=== PATIENT | male | born 1955 | race Caucasian/White ===

== ENCOUNTER 2017-11-23 15:43 | Inpatient (IN) ==
[2017-11-23] MEDS ORDERED: 0.9 % Sodium Chloride 1,000 ML IVC ONE (16:03)
[2017-11-23] MEDS ORDERED: 0.9 % Sodium Chloride 1,000 ML ONE (16:04)
--- NOTE | 2017-11-23 16:08 | Emergency Department Note ---
Disposition Clinical Impression: Opiate overdose Qualifiers: Encounter type: initial encounter Injury intent: undetermined intent Qualified Code(s): T40.604A - Poisoning by unspecified narcotics, undetermined, initial encounter Altered mental status Qualifiers: Altered mental status type: delirium Qualified Code(s): R41.0 - Disorientation , unspecified Disposition: Admitted As Inpatient Condition: Undetermined General Adult HPI - General Chief complaint: ED Altered Mental Status Stated complaint: Overdose Time Seen by Provider: 11/23/17 15:49 Source: EMS - History of Present Illness Pain Scale: 0 - Related Data Home Medications Medication Instructions Recorded Confirmed Cholecalciferol (D-3) [Vitamin D] 2,000 unit PO DAILY 11/23/17 11/23/17 Cyprohepatdine [Periactin] 4 mg PO HS PRN 11/23/17 11/23/17 Docusate Sodium [Dok] 100 mg PO DAILY 11/23/17 11/23/17 Ferrous Sulfate [Iron] 325 mg PO DAILY 11/23/17 11/23/17 Indomethacin 50 mg PO Q8H PRN 11/23/17 11/23/17 Ipratropium/Albuterol Sulfate 4 gm IH Q6H PRN 11/23/17 11/23/17 [Combivent Respimat Inhal [place]] Lidocaine Patch [Lidoderm 5% patch] 1 each TP DAILY 11/23/17 11/23/17 Meloxicam [Mobic] 7.5 mg PO BID 11/23/17 11/23/17 Memantine HCl 10 mg PO BID 11/23/17 11/23/17 Morphine Sulfate SR (12 HR) [MS 1 tab PO Q12HR 11/23/17 11/23/17 Contin] Oxycodone HCl/Acetaminophen 1 tab PO Q8H PRN 11/23/17 11/23/17 [Percocet 5-325 mg Tablet] Sennosides [Senokot] 8.6 mg PO DAILY 11/23/17 11/23/17 Sildenafil Citrate [Viagra] 100 mg PO DAILY 11/23/17 11/23/17 Tamsulosin [Flomax] 0.4 mg PO DAILY 11/23/17 11/23/17 hydrOXYzine HCl [Hydroxyzine HCl] 50 mg PO BID PRN 11/23/17 11/23/17 Allergies Allergy/AdvReac Type Severity Reaction Status Date / Time codeine AdvReac Swelling Verified 08/17/17 10:33 of Lip/Tongue/Throat Past Medical History - Past Medical History Medical history: Reports: arthritis, cancer Surgical history: Reports: cholecystectomy, orthopedic, other Psychiatric history: Reports: no psych history - Social History Smoking Status: Never smoker Smokeless Tobacco Status: No Alcohol use: Reports: none Drug use: Reports: none Physical Exam - General General appearance: lethargic Course Vital Signs Temperature 97.0 F L 11/23/17 15:45 Pulse Rate 123 11/23/17 15:45 Respiratory Rate 22 11/23/17 15:45 Blood Pressure 167/123 11/23/17 15:45 O2 Sat by Pulse Oximetry 94 11/23/17 15:45 Temperature 97.0 F L 11/23/17 15:45 Pulse Rate 89 11/23/17 18:00 Respiratory Rate 20 11/23/17 18:00 Blood Pressure 121/65 11/23/17 18:00 O2 Sat by Pulse Oximetry 98 11/23/17 18:00 Oxygen Delivery Oxygen Delivery Nasal Cannula Medical Decision Making - Lab Data Result diagrams: 11/23/17 16:06 11/23/17 16:06 Lab Results 11/23/17 11/23/17 11/23/17 Range/Units 15:50 15:54 15:54 WBC (4.3-11.1) K/mcL RBC (4.19-5.50) M/mcL Hgb (12.9-16.9) g/dL Hct (37.5-50.1) % MCV (83.0-100.0) fL MCH (28.0-33.3) pg MCHC (31.6-35.5) g/dL RDW (11.5-14.5) % Plt Count (140-400) K/mcL MPV (9.4-12.4) fL Immature Gran % (0-4) % Seg Neutrophils % % Lymphocytes % % Monocytes % % Eosinophils % % Basophils % % Neutrophils # (1.6-8.9) K/mcL Lymphocytes # (0.6-4.6) K/mcL Monocytes # (0.0-1.3) K/mcL Eosinophils # (0.0-0.6) K/mcL Basophils # (0.0-0.2) K/mcL Sodium (136-145) mEq/L Potassium (3.5-5.1) mEq/L Chloride (98-107) mEq/L Carbon Dioxide (23-29) mEq/L BUN (8-23) mg/dL Creatinine (0.70-1.30) mg/dL Est GFR ( Amer) (> 60) Est GFR (Non-Af Amer) (> 60) BUN/Creatinine Ratio (6-26) Glucose (70-105) mg/dL POC Glucose 100 H (70-99) mg/dL Calculated Osmolality (280-300) Lactic Acid (0.5-2.2) mmol/L Calcium (8.6-10.3) mg/dL Total Bilirubin (0.3-1.0) mg/dL Direct Bilirubin (0.0-0.2) mg/dL Indirect Bilirubin (0.0-1.2) mg/dL AST (13-39) Units/L ALT (7-52) Units/L Alkaline Phosphatase (34-104) Units/L Ammonia (16-53) mcmol/L Troponin I (< 0.04) ng/mL Serum Total Protein (6.4-8.9) g/dL Albumin (3.5-5.7) g/dL Globulin (2.4-3.5) g/dL Albumin/Globulin Ratio (1.1-2.2) Urine Color Yellow (Yellow) Urine Clarity Clear (Clear) Urine pH 6.0 (5.0-8.0) pH Units Ur Specific Scenic 1.013 (1.010-1.025) Urine Protein 30 H (Neg-Trace) mg/dL Urine Glucose (UA) Normal (Normal) mg/dL Urine Ketones Negative (Negative) mg/dL Urine Blood Negative (Negative) Urine Nitrite Negative (Negative) Urine Bilirubin Negative (Negative) Urine Urobilinogen Normal (Normal) mg/dL Ur Leukocyte Esterase Negative (Negative) Urine Microscopic RBC 0-3 (0-3) per hpf Urine Microscopic WBC 0-3 (0-3) per hpf Ur Squamous Epith Cells Moderate H (None-Few) per lpf Urine Bacteria None Seen (None-Few) per hpf Hyaline Casts None Seen (None-Few) per lpf Ur Culture Indicated? NO (NO) Urine Opiates Screen Positive H (Qorocw=785) ng/mL Ur Barbiturates Screen Negative (Yeedch=978) ng/mL Ur Phencyclidine Scrn Positive H (Cutoff=25) ng/mL Ur Amphetamines Screen Negative (Lknknd=2133) ng/mL U Benzodiazepines Scrn Negative (Mhpxee=074) ng/mL Urine Cocaine Screen Negative (Cutoff= 300) ng/mL U Marijuana (THC) Screen Negative (Cutoff = 50) ng/mL 11/23/17 11/23/17 11/23/17 Range/Units 16:06 16:06 16:06 WBC 8.5 (4.3-11.1) K/mcL RBC 5.08 (4.19-5.50) M/mcL Hgb 13.1 (12.9-16.9) g/dL Hct 40.6 (37.5-50.1) % MCV 79.9 L (83.0-100.0) fL MCH 25.8 L (28.0-33.3) pg MCHC 32.3 (31.6-35.5) g/dL RDW 15.9 H (11.5-14.5) % Plt Count 163 (140-400) K/mcL MPV 11.0 (9.4-12.4) fL Immature Gran % 0.5 (0-4) % Seg Neutrophils % 67.8 % Lymphocytes % 19.8 % Monocytes % 9.7 % Eosinophils % 2.0 % Basophils % 0.2 % Neutrophils # 5.7 (1.6-8.9) K/mcL Lymphocytes # 1.7 (0.6-4.6) K/mcL Monocytes # 0.8 (0.0-1.3) K/mcL Eosinophils # 0.2 (0.0-0.6) K/mcL Basophils # 0.0 (0.0-0.2) K/mcL Sodium 136 (136-145) mEq/L Potassium 3.7 (3.5-5.1) mEq/L Chloride 106 (98-107) mEq/L Carbon Dioxide 18 L (23-29) mEq/L BUN 20 (8-23) mg/dL Creatinine 1.11 (0.70-1.30) mg/dL Est GFR ( Amer) > 60 (> 60) Est GFR (Non-Af Amer) > 60 (> 60) BUN/Creatinine Ratio 18 (6-26) Glucose 109 H (70-105) mg/dL POC Glucose (70-99) mg/dL Calculated Osmolality 285 (280-300) Lactic Acid (0.5-2.2) mmol/L Calcium 9.2 (8.6-10.3) mg/dL Total Bilirubin 0.4 (0.3-1.0) mg/dL Direct Bilirubin 0.3 H (0.0-0.2) mg/dL Indirect Bilirubin 0.1 (0.0-1.2) mg/dL AST 37 (13-39) Units/L ALT 32 (7-52) Units/L Alkaline Phosphatase 80 (34-104) Units/L Ammonia 42 (16-53) mcmol/L Troponin I < 0.03 (< 0.04) ng/mL Serum Total Protein 9.1 H (6.4-8.9) g/dL Albumin 3.7 (3.5-5.7) g/dL Globulin 5.4 H (2.4-3.5) g/dL Albumin/Globulin Ratio 0.7 L (1.1-2.2) Urine Color (Yellow) Urine Clarity (Clear) Urine pH (5.0-8.0) pH Units Ur Specific Scenic (1.010-1.025) Urine Protein (Neg-Trace) mg/dL Urine Glucose (UA) (Normal) mg/dL Urine Ketones (Negative) mg/dL Urine Blood (Negative) Urine Nitrite (Negative) Urine Bilirubin (Negative) Urine Urobilinogen (Normal) mg/dL Ur Leukocyte Esterase (Negative) Urine Microscopic RBC (0-3) per hpf Urine Microscopic WBC (0-3) per hpf Ur Squamous Epith Cells (None-Few) per lpf Urine Bacteria (None-Few) per hpf Hyaline Casts (None-Few) per lpf Ur Culture Indicated? (NO) Urine Opiates Screen (Vwjsvl=245) ng/mL Ur Barbiturates Screen (Ynkpmz=197) ng/mL Ur Phencyclidine Scrn (Cutoff=25) ng/mL Ur Amphetamines Screen (Zobezh=5665) ng/mL U Benzodiazepines Scrn (Cxntof=127) ng/mL Urine Cocaine Screen (Cutoff= 300) ng/mL U Marijuana (THC) Screen (Cutoff = 50) ng/mL 11/23/17 Range/Units 16:12 WBC (4.3-11.1) K/mcL RBC (4.19-5.50) M/mcL Hgb (12.9-16.9) g/dL Hct (37.5-50.1) % MCV (83.0-100.0) fL MCH (28.0-33.3) pg MCHC (31.6-35.5) g/dL RDW (11.5-14.5) % Plt Count (140-400) K/mcL MPV (9.4-12.4) fL Immature Gran % (0-4) % Seg Neutrophils % % Lymphocytes % % Monocytes % % Eosinophils % % Basophils % % Neutrophils # (1.6-8.9) K/mcL Lymphocytes # (0.6-4.6) K/mcL Monocytes # (0.0-1.3) K/mcL Eosinophils # (0.0-0.6) K/mcL Basophils # (0.0-0.2) K/mcL Sodium (136-145) mEq/L Potassium (3.5-5.1) mEq/L Chloride (98-107) mEq/L Carbon Dioxide (23-29) mEq/L BUN (8-23) mg/dL Creatinine (0.70-1.30) mg/dL Est GFR ( Amer) (> 60) Est GFR (Non-Af Amer) (> 60) BUN/Creatinine Ratio (6-26) Glucose (70-105) mg/dL POC Glucose (70-99) mg/dL Calculated Osmolality (280-300) Lactic Acid 1.9 (0.5-2.2) mmol/L Calcium (8.6-10.3) mg/dL Total Bilirubin (0.3-1.0) mg/dL Direct Bilirubin (0.0-0.2) mg/dL Indirect Bilirubin (0.0-1.2) mg/dL AST (13-39) Units/L ALT (7-52) Units/L Alkaline Phosphatase (34-104) Units/L Ammonia (16-53) mcmol/L Troponin I (< 0.04) ng/mL Serum Total Protein (6.4-8.9) g/dL Albumin (3.5-5.7) g/dL Globulin (2.4-3.5) g/dL Albumin/Globulin Ratio (1.1-2.2) Urine Color (Yellow) Urine Clarity (Clear) Urine pH (5.0-8.0) pH Units Ur Specific Scenic (1.010-1.025) Urine Protein (Neg-Trace) mg/dL Urine Glucose (UA) (Normal) mg/dL Urine Ketones (Negative) mg/dL Urine Blood (Negative) Urine Nitrite (Negative) Urine Bilirubin (Negative) Urine Urobilinogen (Normal) mg/dL Ur Leukocyte Esterase (Negative) Urine Microscopic RBC (0-3) per hpf Urine Microscopic WBC (0-3) per hpf Ur Squamous Epith Cells (None-Few) per lpf Urine Bacteria (None-Few) per hpf Hyaline Casts (None-Few) per lpf Ur Culture Indicated? (NO) Urine Opiates Screen (Thlbqk=091) ng/mL Ur Barbiturates Screen (Dmmmzl=559) ng/mL Ur Phencyclidine Scrn (Cutoff=25) ng/mL Ur Amphetamines Screen (Mxakqc=7679) ng/mL U Benzodiazepines Scrn (Dkaiee=427) ng/mL Urine Cocaine Screen (Cutoff= 300) ng/mL U Marijuana (THC) Screen (Cutoff = 50) ng/mL Attestation Statement - Attestation Attestation: I examined this patient and my medical decision-making was reviewed with the [employer]/PA/Advanced Practice Nurse/Resident Physician. I agree with the documented findings, disposition and treatment plan as described except to the extent set forth below. I did see the patient immediately upon arrival. I also spoke with the physician from the [facility] prearrival. Patient with decreased level of consciousness but does know his name. Was found in the pool. Oxygen saturation between 95 and 96% on room air, he is currently on 2 L nasal cannula. He is shaking his legs and his said this is what he does when he has pain. Hx lupus and Sjogren's syndrome. Patient is protecting his airway. He is incontinent of stool and is somewhat tachycardic. Did receive Narcan here which improved his symptoms. Does have some generalized tremors but no seizure activity. He does have elevated ammonia level per his labs at the [facility] and we do have an evaluation here which is pending. 1606 I checked up on the patient multiple times and his mental status is that he is able to answer basic questions, does have shaking of the legs which his said that he does when he is in pain. This is not a seizure as he is conversational during it. The patient does intermittently have yawning. He is on his way over to CT scan for scan of the brain and neck. We do not have specific evidence of trauma but this will confirm that there is no cervical fracture or brain bleed. My suspicion is that the decreased level of consciousness is due to benzodiazepines received at the [facility]. Patient does have a lot of myoclonic jerks and shaking of the legs. Does not have any seizure activity at this time. 1627 Vital signs are significant improved on recheck. He is no longer tachycardic. I did review the EKG showing normal sinus rhythm with a rate of 90 and some baseline artifact but otherwise without acute ischemic change or arrhythmia 1628
[2017-11-23 16:11] LABS: Bilirubin,Urine Negative (Negative); Blood,Urine Negative (Negative); Clarity,Urine Clear (Clear); Color,Urine Yellow (Yellow); Glucose,Urine (UA) Normal (Normal); Ketones,Urine Negative (Negative); Leukocyte Esterase,Urine Negative (Negative); Nitrite,Urine Negative (Negative); Protein,Urine 30 mg/dL (Neg-Trace); Specific Gravity,Urine 1.013 (1.010-1.025); Urobilinogen,Urine Normal (Normal)
--- NOTE | 2017-11-23 16:12 | Emergency Department Note ---
Disposition Clinical Impression: Opiate overdose Qualifiers: Encounter type: initial encounter Injury intent: undetermined intent Qualified Code(s): T40.604A - Poisoning by unspecified narcotics, undetermined, initial encounter Altered mental status Qualifiers: Altered mental status type: delirium Qualified Code(s): R41.0 - Disorientation , unspecified Disposition: Admitted As Inpatient Condition: Undetermined [facility]Primary Care Provider[facility] - Forms: ED Satisfaction Letter Time of Disposition: 18:34 Altered Mental Status HPI - General Chief Complaint: ED Altered Mental Status Stated Complaint: Overdose Time Seen by Provider: 11/23/17 15:49 Source: EMS Mode of arrival: EMS Limitations: altered mental status Nursing Notes Reviewed: Yes Vital Signs Reviewed: Yes - History of Present Illness HPI Narrative: 62-year-old male with history of Sjogren's and lupus, arrives to the emergency department as a transfer from the [facility]. The patient was found in the swimming pool at the [facility] unresponsive. He was undergoing an aquatics exercise class. The patient was taken to the emergency department and administered Narcan due to past history of opiate use that is extensive. He received 8 mg of IV Narcan and is noted to have been responsive. The patient responded to Narcan and began having seizure-like activity. The patient was administered multiple doses of Ativan and Valium. At that time the patient's shaking continued to improve. The patient was transported to the emergency department At [facility]. the patient arrives and is mildly somnolent but still responsive to some questions but difficult to understand. The patient was subsequently administered another 4 mg of Narcan to which she again woke up slightly and became more responsive. Upon further questioning the patient's the patient has chronic shaking of bilateral lower extremities when he is in pain. The patient denies any other complaints at this time. He is alert and answering person and place orientation. He is following commands. In addition the patient was noted to have an ammonia level of 70 at the [facility]. Labs will be repeated here at [facility] emergency department. - Related Data Home Medications Medication Instructions Recorded Confirmed Cholecalciferol (D-3) [Vitamin D] 2,000 unit PO DAILY 11/23/17 11/23/17 Cyprohepatdine [Periactin] 4 mg PO HS PRN 11/23/17 11/23/17 Docusate Sodium [Dok] 100 mg PO DAILY 11/23/17 11/23/17 Ferrous Sulfate [Iron] 325 mg PO DAILY 11/23/17 11/23/17 Indomethacin 50 mg PO Q8H PRN 11/23/17 11/23/17 Ipratropium/Albuterol Sulfate 4 gm IH Q6H PRN 11/23/17 11/23/17 [Combivent Respimat Inhal Grant] Lidocaine Patch [Lidoderm 5% patch] 1 each TP DAILY 11/23/17 11/23/17 Meloxicam [Mobic] 7.5 mg PO BID 11/23/17 11/23/17 Memantine HCl 10 mg PO BID 11/23/17 11/23/17 Morphine Sulfate SR (12 HR) [MS 1 tab PO Q12HR 11/23/17 11/23/17 Contin] Oxycodone HCl/Acetaminophen 1 tab PO Q8H PRN 11/23/17 11/23/17 [Percocet 5-325 mg Tablet] Sennosides [Senokot] 8.6 mg PO DAILY 11/23/17 11/23/17 Sildenafil Citrate [Viagra] 100 mg PO DAILY 11/23/17 11/23/17 Tamsulosin [Flomax] 0.4 mg PO DAILY 11/23/17 11/23/17 hydrOXYzine HCl [Hydroxyzine HCl] 50 mg PO BID PRN 11/23/17 11/23/17 Allergies Allergy/AdvReac Type Severity Reaction Status Date / Time codeine AdvReac Swelling Verified 08/17/17 10:33 of Lip/Tongue/Throat Limitations: ROS unobtainable due to patients medical condition Past Medical History - Past Medical History Source: old records reviewed, obtained from family Medical history: Reports: arthritis, cancer Surgical history: Reports: cholecystectomy, orthopedic, other Psychiatric history: Reports: no psych history - Social History Smoking Status: Never smoker Smokeless Tobacco Status: No Alcohol use: Reports: none Drug use: Reports: none Physical Exam - General Limitations: altered mental status General appearance: lethargic - Head Head exam: atraumatic, normocephalic, normal inspection - Eye Eye exam: Present: normal appearance, PERRL, EOMI - ENT ENT exam: normal exam, normal oropharynx, mucous membranes moist - Neck Neck exam: Present: normal inspection, full ROM, trachea midline - Chest Chest inspection: Present: normal inspection, symmetric chest wall rise - Respiratory Respiratory exam: Present: normal lung sounds bilaterally - Cardiovascular Cardiovascular exam: Present: normal rhythm, tachycardia, normal heart sounds - Abdominal Exam Abdominal exam: Present: soft, Non-Tender, scar. Absent: tenderness, distention , guarding, rebound, rigidity - Extremities Exam Extremities exam: Present: normal inspection, full ROM. Absent: tenderness, pedal edema - Neurological Exam Neurological exam: Present: alert - Expanded Neurological Exam Patient oriented to: Present: person, place, time Coma Scale Eye Opening: Spontaneous Coma Scale Motor Response: Obeys Commands Coma Scale Verbal Response: Incomprehensible Coma Scale Total: 12 - Skin Skin exam: Present: warm, dry, intact, normal color Course Vital Signs Temperature 97.0 F L 11/23/17 15:45 Pulse Rate 123 11/23/17 15:45 Respiratory Rate 22 11/23/17 15:45 Blood Pressure 167/123 11/23/17 15:45 O2 Sat by Pulse Oximetry 94 11/23/17 15:45 Temperature 97.0 F L 11/23/17 15:45 Pulse Rate 89 11/23/17 18:00 Respiratory Rate 20 11/23/17 18:00 Blood Pressure 121/65 11/23/17 18:00 O2 Sat by Pulse Oximetry 98 11/23/17 18:00 Oxygen Delivery Oxygen Delivery Nasal Cannula Altered Mental Status - [facility] Narrative Medical decision making narrative: Patient's workup in the emergency department demonstrates no acute process to account for patient's symptoms. Patient did improve after receiving Narcan. Given the patient's initial presentation and concern for seizure-like activity and initial mental status, we will admit the patient to the hospital at this time. Patient made aware and agrees to plan also discussed with the patient's who also agrees. No further questions or concerns noted at this time. Accepted by Dr. Diaz. - Lab Data Lab results reviewed: Yes I reviewed the patient's lab results. Result diagrams: 11/23/17 16:06 11/23/17 16:06 Lab Results 11/23/17 11/23/17 11/23/17 Range/Units 15:50 15:54 15:54 WBC (4.3-11.1) K/mcL RBC (4.19-5.50) M/mcL Hgb (12.9-16.9) g/dL Hct (37.5-50.1) % MCV (83.0-100.0) fL MCH (28.0-33.3) pg MCHC (31.6-35.5) g/dL RDW (11.5-14.5) % Plt Count (140-400) K/mcL MPV (9.4-12.4) fL Immature Gran % (0-4) % Seg Neutrophils % % Lymphocytes % % Monocytes % % Eosinophils % % Basophils % % Neutrophils # (1.6-8.9) K/mcL Lymphocytes # (0.6-4.6) K/mcL Monocytes # (0.0-1.3) K/mcL Eosinophils # (0.0-0.6) K/mcL Basophils # (0.0-0.2) K/mcL Sodium (136-145) mEq/L Potassium (3.5-5.1) mEq/L Chloride (98-107) mEq/L Carbon Dioxide (23-29) mEq/L BUN (8-23) mg/dL Creatinine (0.70-1.30) mg/dL Est GFR ( Amer) (> 60) Est GFR (Non-Af Amer) (> 60) BUN/Creatinine Ratio (6-26) Glucose (70-105) mg/dL POC Glucose 100 H (70-99) mg/dL Calculated Osmolality (280-300) Lactic Acid (0.5-2.2) mmol/L Calcium (8.6-10.3) mg/dL Total Bilirubin (0.3-1.0) mg/dL Direct Bilirubin (0.0-0.2) mg/dL Indirect Bilirubin (0.0-1.2) mg/dL AST (13-39) Units/L ALT (7-52) Units/L Alkaline Phosphatase (34-104) Units/L Ammonia (16-53) mcmol/L Troponin I (< 0.04) ng/mL Serum Total Protein (6.4-8.9) g/dL Albumin (3.5-5.7) g/dL Globulin (2.4-3.5) g/dL Albumin/Globulin Ratio (1.1-2.2) Urine Color Yellow (Yellow) Urine Clarity Clear (Clear) Urine pH 6.0 (5.0-8.0) pH Units Ur Specific Myton 1.013 (1.010-1.025) Urine Protein 30 H (Neg-Trace) mg/dL Urine Glucose (UA) Normal (Normal) mg/dL Urine Ketones Negative (Negative) mg/dL Urine Blood Negative (Negative) Urine Nitrite Negative (Negative) Urine Bilirubin Negative (Negative) Urine Urobilinogen Normal (Normal) mg/dL Ur Leukocyte Esterase Negative (Negative) Urine Microscopic RBC 0-3 (0-3) per hpf Urine Microscopic WBC 0-3 (0-3) per hpf Ur Squamous Epith Cells Moderate H (None-Few) per lpf Urine Bacteria None Seen (None-Few) per hpf Hyaline Casts None Seen (None-Few) per lpf Ur Culture Indicated? NO (NO) Urine Opiates Screen Positive H (Rbksvc=937) ng/mL Ur Barbiturates Screen Negative (Vuzdar=722) ng/mL Ur Phencyclidine Scrn Positive H (Cutoff=25) ng/mL Ur Amphetamines Screen Negative (Hjfkhz=9560) ng/mL U Benzodiazepines Scrn Negative (Xvgirb=372) ng/mL Urine Cocaine Screen Negative (Cutoff= 300) ng/mL U Marijuana (THC) Screen Negative (Cutoff = 50) ng/mL 11/23/17 11/23/17 11/23/17 Range/Units 16:06 16:06 16:06 WBC 8.5 (4.3-11.1) K/mcL RBC 5.08 (4.19-5.50) M/mcL Hgb 13.1 (12.9-16.9) g/dL Hct 40.6 (37.5-50.1) % MCV 79.9 L (83.0-100.0) fL MCH 25.8 L (28.0-33.3) pg MCHC 32.3 (31.6-35.5) g/dL RDW 15.9 H (11.5-14.5) % Plt Count 163 (140-400) K/mcL MPV 11.0 (9.4-12.4) fL Immature Gran % 0.5 (0-4) % Seg Neutrophils % 67.8 % Lymphocytes % 19.8 % Monocytes % 9.7 % Eosinophils % 2.0 % Basophils % 0.2 % Neutrophils # 5.7 (1.6-8.9) K/mcL Lymphocytes # 1.7 (0.6-4.6) K/mcL Monocytes # 0.8 (0.0-1.3) K/mcL Eosinophils # 0.2 (0.0-0.6) K/mcL Basophils # 0.0 (0.0-0.2) K/mcL Sodium 136 (136-145) mEq/L Potassium 3.7 (3.5-5.1) mEq/L Chloride 106 (98-107) mEq/L Carbon Dioxide 18 L (23-29) mEq/L BUN 20 (8-23) mg/dL Creatinine 1.11 (0.70-1.30) mg/dL Est GFR ( Amer) > 60 (> 60) Est GFR (Non-Af Amer) > 60 (> 60) BUN/Creatinine Ratio 18 (6-26) Glucose 109 H (70-105) mg/dL POC Glucose (70-99) mg/dL Calculated Osmolality 285 (280-300) Lactic Acid (0.5-2.2) mmol/L Calcium 9.2 (8.6-10.3) mg/dL Total Bilirubin 0.4 (0.3-1.0) mg/dL Direct Bilirubin 0.3 H (0.0-0.2) mg/dL Indirect Bilirubin 0.1 (0.0-1.2) mg/dL AST 37 (13-39) Units/L ALT 32 (7-52) Units/L Alkaline Phosphatase 80 (34-104) Units/L Ammonia 42 (16-53) mcmol/L Troponin I < 0.03 (< 0.04) ng/mL Serum Total Protein 9.1 H (6.4-8.9) g/dL Albumin 3.7 (3.5-5.7) g/dL Globulin 5.4 H (2.4-3.5) g/dL Albumin/Globulin Ratio 0.7 L (1.1-2.2) Urine Color (Yellow) Urine Clarity (Clear) Urine pH (5.0-8.0) pH Units Ur Specific Myton (1.010-1.025) Urine Protein (Neg-Trace) mg/dL Urine Glucose (UA) (Normal) mg/dL Urine Ketones (Negative) mg/dL Urine Blood (Negative) Urine Nitrite (Negative) Urine Bilirubin (Negative) Urine Urobilinogen (Normal) mg/dL Ur Leukocyte Esterase (Negative) Urine Microscopic RBC (0-3) per hpf Urine Microscopic WBC (0-3) per hpf Ur Squamous Epith Cells (None-Few) per lpf Urine Bacteria (None-Few) per hpf Hyaline Casts (None-Few) per lpf Ur Culture Indicated? (NO) Urine Opiates Screen (Mrytwu=830) ng/mL Ur Barbiturates Screen (Wtegyw=306) ng/mL Ur Phencyclidine Scrn (Cutoff=25) ng/mL Ur Amphetamines Screen (Fdwude=4022) ng/mL U Benzodiazepines Scrn (Esdiex=118) ng/mL Urine Cocaine Screen (Cutoff= 300) ng/mL U Marijuana (THC) Screen (Cutoff = 50) ng/mL 11/23/17 Range/Units 16:12 WBC (4.3-11.1) K/mcL RBC (4.19-5.50) M/mcL Hgb (12.9-16.9) g/dL Hct (37.5-50.1) % MCV (83.0-100.0) fL MCH (28.0-33.3) pg MCHC (31.6-35.5) g/dL RDW (11.5-14.5) % Plt Count (140-400) K/mcL MPV (9.4-12.4) fL Immature Gran % (0-4) % Seg Neutrophils % % Lymphocytes % % Monocytes % % Eosinophils % % Basophils % % Neutrophils # (1.6-8.9) K/mcL Lymphocytes # (0.6-4.6) K/mcL Monocytes # (0.0-1.3) K/mcL Eosinophils # (0.0-0.6) K/mcL Basophils # (0.0-0.2) K/mcL Sodium (136-145) mEq/L Potassium (3.5-5.1) mEq/L Chloride (98-107) mEq/L Carbon Dioxide (23-29) mEq/L BUN (8-23) mg/dL Creatinine (0.70-1.30) mg/dL Est GFR ( Amer) (> 60) Est GFR (Non-Af Amer) (> 60) BUN/Creatinine Ratio (6-26) Glucose (70-105) mg/dL POC Glucose (70-99) mg/dL Calculated Osmolality (280-300) Lactic Acid 1.9 (0.5-2.2) mmol/L Calcium (8.6-10.3) mg/dL Total Bilirubin (0.3-1.0) mg/dL Direct Bilirubin (0.0-0.2) mg/dL Indirect Bilirubin (0.0-1.2) mg/dL AST (13-39) Units/L ALT (7-52) Units/L Alkaline Phosphatase (34-104) Units/L Ammonia (16-53) mcmol/L Troponin I (< 0.04) ng/mL Serum Total Protein (6.4-8.9) g/dL Albumin (3.5-5.7) g/dL Globulin (2.4-3.5) g/dL Albumin/Globulin Ratio (1.1-2.2) Urine Color (Yellow) Urine Clarity (Clear) Urine pH (5.0-8.0) pH Units Ur Specific Myton (1.010-1.025) Urine Protein (Neg-Trace) mg/dL Urine Glucose (UA) (Normal) mg/dL Urine Ketones (Negative) mg/dL Urine Blood (Negative) Urine Nitrite (Negative) Urine Bilirubin (Negative) Urine Urobilinogen (Normal) mg/dL Ur Leukocyte Esterase (Negative) Urine Microscopic RBC (0-3) per hpf Urine Microscopic WBC (0-3) per hpf Ur Squamous Epith Cells (None-Few) per lpf Urine Bacteria (None-Few) per hpf Hyaline Casts (None-Few) per lpf Ur Culture Indicated? (NO) Urine Opiates Screen (Dkmqyy=116) ng/mL Ur Barbiturates Screen (Wgbjca=045) ng/mL Ur Phencyclidine Scrn (Cutoff=25) ng/mL Ur Amphetamines Screen (Ecjpmr=8977) ng/mL U Benzodiazepines Scrn (Fgzrkc=541) ng/mL Urine Cocaine Screen (Cutoff= 300) ng/mL U Marijuana (THC) Screen (Cutoff = 50) ng/mL - Radiology Data Radiology results reviewed: Yes I reviewed the patient's radiology results. Cervical Spine CT 11/23/17 16:02 IMPRESSION: Limited exam due to significant patient motion artifacts and image degradation. As visualized, no gross fracture or subluxation. Recommend repeat CT cervical spine study if clinically warranted. D/ / Nisha Nguyen MD / Nisha Nguyen MD Interpreting Provider: Nisha Nguyen MD Head CT 11/23/17 16:02 IMPRESSION: Limited evaluation due to patient motion but to the extent of visualization, no acute abnormality identified D/ / Dixon Espino MD / Dixon Espino MD Interpreting Provider: Dixon Espino MD - EKG Data EKG attestation: Yes I reviewed and interpreted this EKG. EKG results narrative: Heart rate 90 beats for minute. Normal sinus rhythm. No ST elevation or ST depression noted. Were EKG due to patient artifact associated with patient's shaking. TPA Checklist - LKW: 3-4.5 hrs Add. Warnings/Precautions Patient/family understanding: The patient/family members have been counseled and understood the risk, benefit , and alternatives of treatment.
[2017-11-23 16:13] LABS: Bacteria,Urine None Seen per hpf (None-Few); Hyaline Casts,Urine None Seen per lpf (None-Few); RBC,Urine 0-3 per hpf (0-3); Squamous Epithelial Cell,Urine Moderate per lpf (None-Few); WBC,Urine 0-3 per hpf (0-3)
[2017-11-23 16:20] LABS: Basophils % 0.2 %; Eosinophils # 0.2 K/mcL (0.0-0.6); Hematocrit 40.6 % (37.5-50.1); Hemoglobin 13.1 g/dL (12.9-16.9); Immature Granulocytes % 0.5 % (0-4); Lymphocytes # 1.7 K/mcL (0.6-4.6); Lymphocytes % 19.8 %; Mean Corpuscular HGB Conc 32.3 g/dL (31.6-35.5); Mean Corpuscular Hemoglobin 25.8 pg (28.0-33.3); Mean Corpuscular Volume 79.9 fL (83.0-100.0); Monocytes # 0.8 K/mcL (0.0-1.3); Monocytes % 9.7 %; Neutrophils # 5.7 K/mcL (1.6-8.9); Platelet Count 163 K/mcL (140-400); Red Blood Count 5.08 M/mcL (4.19-5.50); Red Cell Distribution Width 15.9 % (11.5-14.5); Segmented Neutrophils % 67.8 %
[2017-11-23 16:24] LABS: Amphetamine Screen,Urine Negative ng/mL (Cutoff=1000); Barbiturate Screen,Urine Negative ng/mL (Cutoff=200); Benzodiazepines Screen,Urine Negative ng/mL (Cutoff=200); Cannabinoid Screen,Urine Negative ng/mL (Cutoff = 50); Cocaine Screen,Urine Negative ng/mL (Cutoff= 300); Opiate Screen,Urine Positive ng/mL (Cutoff=300)
[2017-11-23] MEDS ORDERED: *HR* LORazepam 2 MG/ML VIAL IVP ONE (16:34)
[2017-11-23 16:38] LABS: Troponin I < 0.03 ng/mL (< 0.04)
[2017-11-23 16:43] LABS: Alanine Aminotransferase 32 Units/L (7-52); Albumin 3.7 g/dL (3.5-5.7); Albumin/Globulin Ratio 0.7 (1.1-2.2); Alkaline Phosphatase 80 Units/L (34-104); Aspartate Amino Transferase 37 Units/L (13-39); BUN/Creatinine Ratio 18 (6-26); Bilirubin,Direct 0.3 mg/dL (0.0-0.2); Bilirubin,Indirect 0.1 mg/dL (0.0-1.2); Bilirubin,Total 0.4 mg/dL (0.3-1.0); Blood Urea Nitrogen 20 mg/dL (8-23); Calcium 9.2 mg/dL (8.6-10.3); Carbon Dioxide 18 mEq/L (23-29); Chloride 106 mEq/L (98-107); Globulin 5.4 g/dL (2.4-3.5); Glucose 109 mg/dL (70-105); Osmolality,Calculated 285 (280-300); Potassium 3.7 mEq/L (3.5-5.1); Sodium 136 mEq/L (136-145); Total Protein 9.1 g/dL (6.4-8.9); eGFR For African Americans > 60 (> 60); eGFR For Non-African Americans > 60 (> 60)
[2017-11-23] MEDS ORDERED: ALBUTEROL SULFATE IH PRN (21:45)
[2017-11-23] MEDS ORDERED: hydrOXYzine pamoate 25 MG CAPSULE PO PRN (21:45)
[2017-11-23] MEDS ORDERED: Cyprohepatdine 4 MG TABLET PO PRN (21:45)
[2017-11-23] MEDS ORDERED: IPRATROPIUM IH PRN (21:45)
[2017-11-23] MEDS ORDERED: Indomethacin 25 MG CAPSULE PO PRN (21:45)
[2017-11-23] MEDS ORDERED: Naloxone 0.4 MG/ML INJ IVP PRN (21:48)
--- NOTE | 2017-11-23 22:15 | Internal Med History&Physical ---
Date of Encounter: 11/23/17 Time of Encounter: 21:42 Internal Medicine - H&P: HPI Admitted From: Hospital to Hospital Transfer Plans for Post Hospital Care: Home History of present illness: Mr. Zuniga is a 62 year old male Sjogren's syndrome, morbid obesity sleep apnea, chronic pain due to Sjogren's. Pt Pt states he lives with his . is not at bedside. He reports that he experiences an autoimmune flare of his Sjogren's once in a while. States the flare is an intense pain. He states while at the pool today, 11/22/2017, he developed intense pain and that pain was so intense he cold not communicate. He was aware he could not communicate. He reports being on opiod chronically for about 10-14 years. He is being followed for his autoimmune disorder at the [facility]. He did state that he does not recall the ride to the hospital and did not understand why he was being admitted. He also reports having peripheral neuropathy that is controlled with Lidocaine patches. He has tremors once in a while due to the pain. Pt admits to hx of MILENA and was diagnosed 10 years ago. He reports using BiPAP for 4 years but then quit using it after that. Pt had be given narcan due to concern for opiate OD. In ED WBC 8.5, hgb 13.1, hct 40.6, plt 163. Na 136, K 3.7, BUN 20, Cr 1.11. AST 37, ALT 32, Alk phos 80. Urine analysis negative for UTI. UDS + for opiates and phencyclidine. Non-contrast CT head IMPRESSION: Limited evaluation due to patient motion but to the extent of visualization, no acute abnormality identified. Non-contrast cervical CT IMPRESSION: Limited exam due to significant patient motion artifacts and image degradation. As visualized, no gross fracture or subluxation. Past Med Surg Social Fam HX - Past Medical History Medical history: arthritis, cancer Additional medical history: Lung CA. Lupus Psychiatric history: no psych history - Past Surgical History Surgical History: cholecystectomy, orthopedic, other Additional surgical history: r foot,laminectomy,l kidney, - Social History Smoking Status: Never smoker Smokeless Tobacco Status: No Alcohol use: none Drug use: none Internal Medicine - H&P: Meds Cholecalciferol (D-3) [Vitamin D] 2,000 unit PO DAILY 11/23/17 [History] Cyprohepatdine [Periactin] 4 mg PO HS PRN 11/23/17 [History] Docusate Sodium [Dok] 100 mg PO DAILY 11/23/17 [History] Ferrous Sulfate [Iron] 325 mg PO DAILY 11/23/17 [History] Indomethacin 50 mg PO Q8H PRN 11/23/17 [History] Ipratropium/Albuterol Sulfate [Combivent Respimat Inhal Trilla] 4 gm IH Q6H PRN 11/23/17 [History] Lidocaine Patch [Lidoderm 5% patch] 1 each TP DAILY 11/23/17 [History] Meloxicam [Mobic] 7.5 mg PO BID 11/23/17 [History] Memantine HCl 10 mg PO BID 11/23/17 [History] Morphine Sulfate SR (12 HR) [MS Contin] 1 tab PO Q12HR 11/23/17 [History] Oxycodone HCl/Acetaminophen [Percocet 5-325 mg Tablet] 1 tab PO Q8H PRN [History] Sennosides [Senokot] 8.6 mg PO DAILY 11/23/17 [History] Sildenafil Citrate [Viagra] 100 mg PO DAILY 11/23/17 [History] Tamsulosin [Flomax] 0.4 mg PO DAILY 11/23/17 [History] hydrOXYzine HCl [Hydroxyzine HCl] 50 mg PO BID PRN 11/23/17 [History] 3 Allergy/AdvReac Type Severity Reaction Status Date / Time codeine AdvReac Swelling Verified 08/17/17 10:33 of Lip/Tongue/Throat All Systems PM: A 10-system review of systems was performed and is negative for pertinent findings except as documented above in the HPI. - Constitutional Vitals: Temp Pulse Resp BP Pulse Ox 97.0 F L 85 20 137/76 95 11/23/17 15:45 11/23/17 19:10 11/23/17 20:23 11/23/17 20:23 11/23/17 19:10 General appearance: Present: A&O X 3, morbidly obese, no acute distress - Head Head exam: Present: atraumatic, normocephalic - Eye Eye exam: Present: PERRL, conjuntiva pink, sclera anicteric Pupils: Present: PERRL - Neck Neck exam general surgery: Present: supple, trachea midline. Absent: lymphadenopathy - Respiratory Respiratory exam: Present: CTAB. Absent: accessory muscle use, rales, rhonchi, wheezes - Cardiovascular Cardiovascular exam: Present: RRR, +S1, +S2. Absent: diastolic murmur, gallop, rubs, systolic murmur - GI/Abdominal GI/Abdominal exam: Present: normal bowel sounds, soft, no peritoneal signs. Absent: distended, tenderness - Extremities Exam Extremities exam: Present: warm, radial pulses palpable and symmetrical. Absent : calf tenderness, cyanotic, pedal edema - Neurological Exam Neurological exam: Present: CN II-XII intact, oriented X3, no focal deficits. Absent: pronater drift, facial droop, speech deficit - Skin Skin exam: Present: dry, intact Internal Med - H&P Results - Labs CBC & Chem 7: 11/23/17 16:06 11/23/17 16:06 - Assessment and plan (1) Altered mental status Current Visit: Yes Status: Acute Assessment and plan: Pt is back at his baseline. Will monitor overnight. Denies any syncopal episode. Qualifiers: Altered mental status type: disorientation Qualified Code(s): R41.0 - Disorientation, unspecified (2) Opiate overdose Current Visit: Yes Status: Acute Assessment and plan: Pt states he did not OD. Reports compliance to his medication and states he has been consistent for about 10 years. States he was having a painful flare of his autoimmune disorder. Qualifiers: Encounter type: initial encounter Injury intent: undetermined intent Qualified Code(s): T40.604A - Poisoning by unspecified narcotics, undetermined, initial encounter (3) MILENA (obstructive sleep apnea) Current Visit: Yes Status: Acute Assessment and plan: Will check niht time pulse oximetry and place on night time oxygen for now (4) Morbid obesity Current Visit: Yes Status: Acute Assessment and plan: Life style modification such as diet and exercise (5) Sjogren's syndrome Current Visit: Yes Status: Acute Assessment and plan: Pt follows up at the [facility]. Qualifiers: Qualified Code(s): M35.00 - Sicca syndrome, unspecified - Time Spent With Patient Total time spent is greater than 50% in coordination of care (as documented) at patient's floor/unit and/or counseling patient: 25 - 35 minutes
[2017-11-23] MEDS ORDERED: Acetaminophen 325 MG TABLET PO PRN (23:14)
[2017-11-24] MEDS: *HR* OxyCODONE/APAP 5/325 TABLET PO PRN ×2 (00:12→08:57)
[2017-11-24] MEDS ORDERED: *HR* Morphine Sulfate SR (12 HR) 60 MG TABLET.ER PO SCH (06:00)
[2017-11-24 06:50] VITALS: BP 155/91
[2017-11-24] MEDS ORDERED: Sildenafil Citrate 20 MG TABLET PO SCH (09:00)
[2017-11-24] MEDS ORDERED: Cholecalciferol (D-3) 1,000 UNIT TABLET PO SCH (09:00)
[2017-11-24] MEDS ORDERED: Sennosides 8.6 MG TABLET PO SCH (09:00)
--- NOTE | 2017-11-24 10:37 | Discharge Summary ---
- NOTES TO OUTPATIENT PROVIDER Notes to Outpatient Provider: No change in meds, follow up with PCP Date of Encounter: 11/24/17 Time of Encounter: 10:37 - Discharge Diagnosis (1) Altered mental status Priority: Primary Status: Resolved Qualifiers: Altered mental status type: disorientation Qualified Code(s): R41.0 - Disorientation, unspecified (2) Morbid obesity Priority: Secondary Status: Chronic (3) MILENA (obstructive sleep apnea) Priority: Secondary Status: Chronic (4) Sjogren's syndrome Priority: Secondary Status: Chronic Qualifiers: Sjogren's organ involvement: unspecified organ involvement Qualified Code(s ): M35.00 - Sicca syndrome, unspecified Hospital course: Mr. Zuniga is a 62 year old male with MILENA, Sjogren, Chronic pain on opiates, Morbid Obesity He was transferred from the [facility] to [facility] for altered mentation. patient reports he was at the pool and started feeling his Sjogrn flare up which he described as low back pain radiating to the shoulders, he believes he was "poorly treated , due to people trying to be heroic in his resuscitation", he also received Narcan in the ED as well as BZDP at the [facility]. He is alert, awake, oriented, in no form of distress. Work up in the CBC, chem, LFT unremarkable,UA negative fr UTI, head and c-spine CT negative for any active findings. Patient denies any symptoms this morning, and does not "even understand why I need to be here". he has no seizure like activities and there is no documentation of same in the ER nor the [facility]. The patient will be discharged home with his chronic home meds to follow up with PCP. Discharge discussed with: patient, nurse - Time Spent with Patient Total time spent providing and/or coordinating discharge services: Less than 30 minutes - Discharge Medications Home Medications: Cholecalciferol (D-3) [Vitamin D] 2,000 unit PO DAILY 11/23/17 [History] Cyprohepatdine [Periactin] 4 mg PO HS PRN 11/23/17 [History] Docusate Sodium [Dok] 100 mg PO DAILY 11/23/17 [History] Ferrous Sulfate [Iron] 325 mg PO DAILY 11/23/17 [History] Indomethacin 50 mg PO Q8H PRN 11/23/17 [History] Ipratropium/Albuterol Sulfate [Combivent Respimat Inhal [place]] 4 gm IH Q6H PRN 11/23/17 [History] Lidocaine Patch [Lidoderm 5% patch] 1 each TP DAILY 11/23/17 [History] Meloxicam [Mobic] 7.5 mg PO BID 11/23/17 [History] Memantine HCl 10 mg PO BID 11/23/17 [History] Morphine Sulfate SR (12 HR) [MS Contin] 1 tab PO Q12HR 11/23/17 [History] Oxycodone HCl/Acetaminophen [Percocet 5-325 mg Tablet] 1 tab PO Q8H PRN [History] Sennosides [Senokot] 8.6 mg PO DAILY 11/23/17 [History] Sildenafil Citrate [Viagra] 100 mg PO DAILY 11/23/17 [History] Tamsulosin [Flomax] 0.4 mg PO DAILY 11/23/17 [History] hydrOXYzine HCl [Hydroxyzine HCl] 50 mg PO BID PRN 11/23/17 [History] Allergies/Adverse Reactions: 3 Allergy/AdvReac Type Severity Reaction Status Date / Time codeine AdvReac Swelling Verified 08/17/17 10:33 of Lip/Tongue/Throat Date of admission: 11/23/17 18:53 Primary care physician: [facility] Discharging clinician: Jack Fuentes Anticipated date of discharge: 11/24/17 - Constitutional Vitals: Temp Pulse Resp BP Pulse Ox 97.8 F 76 16 155/91 98 11/24/17 06:46 11/24/17 06:46 11/24/17 06:46 11/24/17 06:46 11/24/17 06:46 General appearance: Present: A&O X 3, morbidly obese, no acute distress - Head Head exam: Present: atraumatic, normocephalic - Eye Eye exam: Present: PERRL, conjuntiva pink, sclera anicteric Pupils: Present: PERRL - Neck Neck exam general surgery: Present: supple, trachea midline. Absent: lymphadenopathy - Respiratory Respiratory exam: Present: CTAB. Absent: accessory muscle use, rales, rhonchi, wheezes - Cardiovascular Cardiovascular exam: Present: RRR, +S1, +S2. Absent: diastolic murmur, gallop, rubs, systolic murmur - GI/Abdominal GI/Abdominal exam: Present: normal bowel sounds, soft, no peritoneal signs. Absent: distended, tenderness - Extremities Exam Extremities exam: Present: warm, radial pulses palpable and symmetrical. Absent : calf tenderness, cyanotic, pedal edema - Neurological Exam Neurological exam: Present: alert, CN II-XII intact, oriented X3, no focal deficits. Absent: pronater drift, facial droop, speech deficit - Skin Skin exam: Present: dry, intact - Patient Status Disposition: Home, Self-Care Condition: Good Functional capacity at discharge: independent ambulation Overall status at discharge: patient is back to baseline - Discharge Instructions Follow Up With: [facility] [Primary Care Provider[facility] - - Diet and Activity Activity: resume usual activities as tolerated Diet: low salt diet
--- NOTE | 2017-11-26 09:18 | Electrocardiograph Report ---
[address] [address] Test Date: 2017-11-23 Pat Name: Miguel Angel Zuniga Department: 103 Room: [facility] Gender: M Index Clerk: : 1955 Requested By: Deshawn Schaefer Order Number: [id number] Reading MD: Nirav Ravi Measurements Intervals [place] Rate: 90 P: 66 ND: 185 QRS: -50 QRSD: 119 T: 61 QT: 372 QTc: 419 Interpretive Statements SINUS RHYTHM INCOMPLETE RIGHT BUNDLE BRANCH BLOCK LEFT ANTERIOR FASCICULAR BLOCK BASELINE ARTIFACT Electronically Signed On 11-26-2017 9:17:19 EDT by Nirav Ravi
[2017-11-28 18:51] LABS: Phencyclidine Screen,Urine Negative ng/mL (Cutoff=25)
== END 2017-11-24 14:36 | disposition home or self-care (01) | DRG 918 ==
LOC: EMEROO 15:43 → 2NENU 18:53
PROVIDERS: ADMIT Family Medicine; ATTEND Family Medicine

== ENCOUNTER 2018-09-19 07:34 | Inpatient (IN) ==
[2018-09-19] MEDS ORDERED: *HR* OxyCODONE/APAP 5/325 TABLET PO ONE (07:47)
[2018-09-19] MEDS ORDERED: Orphenadrine 100 MG TABLET.ER PO ONE (07:47)
--- NOTE | 2018-09-19 07:52 | Emergency Department Note ---
Disposition Clinical Impression: Femoral fracture Qualifiers: Encounter type: initial encounter Femur location: distal Fracture type: closed Fracture morphology: unspecified fracture morphology Laterality: left Qualified Code(s): S72.402A - Unspecified fracture of lower end of left femur, initial encounter for closed fracture Disposition: Admitted As Inpatient Lower Extremity Injury HPI - General Chief Complaint: ED Extremity Injury, Lower Stated Complaint: left leg injury Time Seen by Provider: 09/19/18 07:39 Source: patient, EMS Limitations: no limitations Nursing Notes Reviewed: Yes Vital Signs Reviewed: Yes - History of Present Illness HPI Narrative: 63-year-old male presents with the left lower extremity injury. Patient stated he suddenly felt left knee gave out. Then he fell on left knee. Patient could not stand up after the injury. He reported left thigh spasm.. Left leg could not keep straight. No dizziness or weakness prior. Pt Subjective Complaint: hip injury, knee injury Onset (ago): hour(s) (2) Context: fall - Related Data Home Medications Medication Instructions Recorded Confirmed Cholecalciferol (D-3) [Vitamin D] 2,000 unit PO DAILY 11/23/17 11/23/17 Cyprohepatdine [Periactin] 4 mg PO HS PRN 11/23/17 11/23/17 Docusate Sodium [Dok] 100 mg PO DAILY 11/23/17 11/23/17 Ferrous Sulfate [Iron] 325 mg PO DAILY 11/23/17 11/23/17 Indomethacin 50 mg PO Q8H PRN 11/23/17 11/23/17 Ipratropium/Albuterol Sulfate 4 gm IH Q6H PRN 11/23/17 11/23/17 [Combivent Respimat Inhal [place]] Lidocaine Patch [Lidoderm 5% patch] 1 each TP DAILY 11/23/17 11/23/17 Meloxicam [Mobic] 7.5 mg PO BID 11/23/17 11/23/17 Memantine HCl 10 mg PO BID 11/23/17 11/23/17 Morphine Sulfate SR (12 HR) [MS 1 tab PO Q12HR 11/23/17 11/23/17 Contin] Oxycodone HCl/Acetaminophen 1 tab PO Q8H PRN 11/23/17 11/23/17 [Percocet 5-325 mg Tablet] Sennosides [Senokot] 8.6 mg PO DAILY 11/23/17 11/23/17 Sildenafil Citrate [Viagra] 100 mg PO DAILY 11/23/17 11/23/17 Tamsulosin [Flomax] 0.4 mg PO DAILY 11/23/17 11/23/17 hydrOXYzine HCl [Hydroxyzine HCl] 50 mg PO BID PRN 11/23/17 11/23/17 Allergies Allergy/AdvReac Type Severity Reaction Status Date / Time codeine AdvReac Swelling Verified 08/17/17 10:33 of Lip/Tongue/Throat Constitutional: Denies: fever, chills Eyes: Denies: eye pain ENT ED: Denies: ear pain Cardiovascular: Denies: chest pain Respiratory: Denies: cough Gastrointestinal: Denies: abdominal pain Genitourinary: Denies: urgency Musculoskeletal: Reports: joint swelling, arthralgia (left leg pain). Denies: back pain Integumentary: Denies: rash Neurological: Denies: headache Psychiatric: Denies: anxiety Endocrine: Denies: fatigue Hematological/Lymphatic: Denies: easy bleeding Allergic/Immunologic: Denies: facial swelling Past Medical History - Past Medical History Medical history: Reports: arthritis, cancer Surgical history: Reports: cholecystectomy, orthopedic, other Psychiatric history: Reports: no psych history - Social History Smoking Status: Never smoker Smokeless Tobacco Status: No Alcohol use: Reports: occasionally Drug use: Reports: none Physical Exam - General General appearance: alert, in no apparent distress - Head Head exam: atraumatic - Eye Eye exam: Present: normal appearance - ENT ENT exam: normal exam - Neck Neck exam: Present: normal inspection - Chest Chest inspection: Present: normal inspection - Respiratory Respiratory exam: Present: normal lung sounds bilaterally - Cardiovascular Cardiovascular exam: Present: regular rate - Abdominal Exam Abdominal exam: Present: soft, Non-Tender - Expanded Lower Extremity Exam Hip/Pelvis exam: Present: normal inspection, tenderness. Absent: full ROM Upper leg exam: Present: tenderness, swelling. Absent: normal inspection (left thigh deformity, lateral flexion position, tender to palpation) Knee exam: Present: normal inspection, tenderness. Absent: full ROM - Back Exam Back exam: Present: normal inspection, full ROM. Absent: tenderness - Neurological Exam Neurological exam: Present: alert, oriented X3 - Psychiatric Psychiatric exam: Present: normal affect - Skin Skin exam: Present: warm, intact Course Vital Signs Temperature 98.2 F 09/19/18 07:36 Pulse Rate 75 09/19/18 07:36 Respiratory Rate 20 09/19/18 07:36 Blood Pressure 127/75 09/19/18 07:36 O2 Sat by Pulse Oximetry 100 09/19/18 07:36 Temperature 98.2 F 09/19/18 07:36 Pulse Rate 79 09/19/18 09:32 Respiratory Rate 16 09/19/18 10:37 Blood Pressure 95/71 09/19/18 10:37 O2 Sat by Pulse Oximetry 98 09/19/18 09:32 Oxygen Delivery Oxygen Delivery Room Air Extremity Injury, Lower - MDM Narrative Medical decision making narrative: 63 -year-old male presents with left leg injury. Patient had mechanical fall this morning and landed on his left knee. No weight bearing on left leg after the injury. Physical exam: Left thigh deformity noted, tender to palpation. Left hip and left knee x-ray indicated distal femoral impacted and angulated fracture. Spoke with on-call orthopedics. Dr. Riggs suggested patient will be admitted to hospital with Orthopedic consult. Pre-op started in the ED. Dr. Chisholm has seen the patient and agrees the above plan. - Lab Data Result diagrams: 09/19/18 08:40 09/19/18 08:40 Lab Results 09/19/18 09/19/18 09/19/18 Range/Units 08:40 08:40 08:40 WBC 14.8 H (4.3-11.1) K/mcL RBC 4.44 (4.19-5.50) M/mcL Hgb 11.5 L (12.9-16.9) g/dL Hct 36.7 L (37.5-50.1) % MCV 82.7 L (83.0-100.0) fL MCH 25.9 L (28.0-33.3) pg MCHC 31.3 L (31.6-35.5) g/dL RDW 17.3 H (11.5-14.5) % Plt Count 261 (140-400) K/mcL MPV 9.5 (9.4-12.4) fL Immature Gran % 2.2 (0-4) % Seg Neutrophils % 87.1 % Lymphocytes % 6.7 % Monocytes % 3.5 % Eosinophils % 0.1 % Basophils % 0.4 % Neutrophils # 12.9 H (1.6-8.9) K/mcL Lymphocytes # 1.0 (0.6-4.6) K/mcL Monocytes # 0.5 (0.0-1.3) K/mcL Eosinophils # 0.0 (0.0-0.6) K/mcL Basophils # 0.1 (0.0-0.2) K/mcL PT 11.2 (9.4-12.1) Seconds INR 1.0 Sodium 134 L (136-145) mEq/L Potassium 5.0 (3.5-5.1) mEq/L Chloride 100 (98-107) mEq/L Carbon Dioxide 26 (23-29) mEq/L BUN 28 H (8-23) mg/dL Creatinine 1.11 (0.70-1.30) mg/dL Est GFR ( Amer) > 60 (> 60) Est GFR (Non-Af Amer) > 60 (> 60) BUN/Creatinine Ratio 25 (6-26) Glucose 132 H (70-105) mg/dL Calculated Osmolality 285 (280-300) Calcium 9.0 (8.6-10.3) mg/dL Total Bilirubin 0.5 (0.3-1.0) mg/dL AST 18 (13-39) Units/L ALT 25 (7-52) Units/L Alkaline Phosphatase 52 (34-104) Units/L Serum Total Protein 6.9 (6.4-8.9) g/dL Albumin 3.5 (3.5-5.7) g/dL Globulin 3.4 (2.4-3.5) g/dL Albumin/Globulin Ratio 1.0 L (1.1-2.2) - Radiology Data Radiology results reviewed: Yes I reviewed the patient's radiology results. EXAMINATION: 4 XRAY VIEWS OF THE LEFT KNEE 09/19/2018 8:10 am COMPARISON: None. HISTORY: ORDERING SYSTEM PROVIDED HISTORY: left knee pain Initial exam FINDINGS: Comminuted impacted fracture of the distal femoral diaphysis extending obliquely through to the intercondylar notch. The fracture demonstrates apex medial angular deformity. There is a large hyperdense joint effusion suggesting hemarthrosis. Question of small cortical fragments arising from the dorsal margin of the patella. Osteoarthritic changes in all three compartments. XR/XR knee 4V LT IMPRESSION: Comminuted, impacted and angulated distal femoral diaphyseal fracture extending to the intercondylar level. Question small tip fracture or avulsion fracture of the dorsal margin of the superior pole of the patella. D/ / 09/19/2018 08:38:09 Mor Jimenez MD / [facility] Interpreting Provider: Mor Jimenez MD HISTORY: ORDERING SYSTEM PROVIDED HISTORY: left hip pain Patient status post fall, acute left hip pain. FINDINGS: A single frontal view of the pelvis as well as frontal and lateral views of the left hip were performed. There is no radiographic evidence of an acute fracture or dislocation of either hip. There is mild symmetric bilateral hip osteoarthritis. The pelvic ring appears intact. The sacrum and SI joints are unremarkable. Enthesopathic changes are evident. No destructive osseous lesion is seen. There are surgical clips overlying the left lower quadrant. No additional soft tissue abnormality is identified. XR/XR hip complete LT IMPRESSION: 1. No acute radiographic abnormality of the left hip or osseous pelvis. However, if an acute hip fracture remains of clinical concern, suggest dedicated hip MRI for more detailed evaluation if an occult fracture remains of clinical concern. 2. Mild symmetric bilateral hip osteoarthritis. D/ / 09/19/2018 08:39:00 Yoandy Simms MD / [facility] Interpreting Provider: Yoandy Simsm MD
[2018-09-19] MEDS ORDERED: Ondansetron 4 MG/2 ML VIAL IVP ONE (08:38)
[2018-09-19] MEDS ORDERED: *HR* Morphine 2 MG/ML SYRINGE IVP ONE (08:38)
[2018-09-19 08:56] LABS: Basophils # 0.1 K/mcL (0.0-0.2); Basophils % 0.4 %; Eosinophils % 0.1 %; Hematocrit 36.7 % (37.5-50.1); Hemoglobin 11.5 g/dL (12.9-16.9); Immature Granulocytes % 2.2 % (0-4); Lymphocytes % 6.7 %; Mean Corpuscular HGB Conc 31.3 g/dL (31.6-35.5); Mean Corpuscular Hemoglobin 25.9 pg (28.0-33.3); Mean Corpuscular Volume 82.7 fL (83.0-100.0); Mean Platelet Volume 9.5 fL (9.4-12.4); Monocytes # 0.5 K/mcL (0.0-1.3); Monocytes % 3.5 %; Neutrophils # 12.9 K/mcL (1.6-8.9); Platelet Count 261 K/mcL (140-400); Red Blood Count 4.44 M/mcL (4.19-5.50); Red Cell Distribution Width 17.3 % (11.5-14.5); Segmented Neutrophils % 87.1 %
--- NOTE | 2018-09-19 08:57 | Emergency Department Note ---
Disposition Clinical Impression: Femoral fracture Qualifiers: Encounter type: initial encounter Femur location: distal Fracture type: closed Fracture morphology: unspecified fracture morphology Laterality: left Qualified Code(s): S72.402A - Unspecified fracture of lower end of left femur, initial encounter for closed fracture Disposition: Admitted As Inpatient Condition: Fair General Adult HPI - General Chief complaint: ED Extremity Injury, Lower Stated complaint: left leg injury Time Seen by Provider: 09/19/18 07:39 Source: patient, EMS Limitations: no limitations - History of Present Illness Pain Scale: 10 - Related Data Home Medications Medication Instructions Recorded Confirmed Cholecalciferol (D-3) [Vitamin D] 3,000 unit PO DAILY 11/23/17 09/19/18 Ferrous Sulfate [Iron] 325 mg PO DAILY 11/23/17 09/19/18 Lidocaine Patch [Lidoderm 5% patch] 1 patch TP DAILY PRN 11/23/17 09/19/18 Meloxicam [Mobic] 7.5 mg PO BID 11/23/17 09/19/18 RX: Memantine HCl 10 mg PO BID 11/23/17 09/19/18 Sennosides [Senokot] 8.6 mg PO DAILY PRN 11/23/17 09/19/18 Sildenafil Citrate [Viagra] 100 mg PO DAILY PRN 11/23/17 09/19/18 Morphine Sulfate [Arymo ER] 30 mg PO BID 09/19/18 09/19/18 OxyCODONE/APAP 10/325 [Percocet 1 tab PO 5XD PRN 09/19/18 09/19/18 10/325 MG] PredniSONE [Deltasone] 60 mg PO DAILY 09/19/18 09/19/18 RX: Trazodone HCl 150 mg PO HS PRN 09/19/18 09/19/18 Sulfamethoxazole/Trimeth DS 1 tab PO MOWEFR 09/19/18 09/19/18 [Bactrim DS] Tamsulosin HCl [Flomax] 0.4 mg PO DAILY 09/19/18 09/19/18 Allergies Allergy/AdvReac Type Severity Reaction Status Date / Time codeine AdvReac Swelling Verified 08/17/17 10:33 of Lip/Tongue/Throat Past Medical History - Past Medical History Medical history: Reports: arthritis, cancer Surgical history: Reports: cholecystectomy, orthopedic, other Psychiatric history: Reports: no psych history - Social History Smoking Status: Never smoker Smokeless Tobacco Status: No Alcohol use: Reports: occasionally Drug use: Reports: none Physical Exam - General Limitations: no limitations General appearance: alert, in no apparent distress Course Vital Signs Temperature 98.2 F 09/19/18 07:36 Pulse Rate 75 09/19/18 07:36 Respiratory Rate 20 09/19/18 07:36 Blood Pressure 127/75 09/19/18 07:36 O2 Sat by Pulse Oximetry 100 09/19/18 07:36 Temperature 97.8 F 09/21/18 03:30 Pulse Rate 83 09/21/18 03:30 Respiratory Rate 16 09/21/18 03:30 Blood Pressure 121/77 09/21/18 03:30 O2 Sat by Pulse Oximetry 93 09/21/18 03:30 Oxygen Delivery Oxygen Delivery Room Air Medical Decision Making - Lab Data Result diagrams: 09/21/18 04:14 09/21/18 04:14 Lab Results 09/19/18 09/19/18 09/19/18 Range/Units 08:40 08:40 08:40 WBC 14.8 H (4.3-11.1) K/mcL RBC 4.44 (4.19-5.50) M/mcL Hgb 11.5 L (12.9-16.9) g/dL Hct 36.7 L (37.5-50.1) % MCV 82.7 L (83.0-100.0) fL MCH 25.9 L (28.0-33.3) pg MCHC 31.3 L (31.6-35.5) g/dL RDW 17.3 H (11.5-14.5) % Plt Count 261 (140-400) K/mcL MPV 9.5 (9.4-12.4) fL Immature Gran % 2.2 (0-4) % Seg Neutrophils % 87.1 % Lymphocytes % 6.7 % Monocytes % 3.5 % Eosinophils % 0.1 % Basophils % 0.4 % Neutrophils # 12.9 H (1.6-8.9) K/mcL Lymphocytes # 1.0 (0.6-4.6) K/mcL Monocytes # 0.5 (0.0-1.3) K/mcL Eosinophils # 0.0 (0.0-0.6) K/mcL Basophils # 0.1 (0.0-0.2) K/mcL PT 11.2 (9.4-12.1) Seconds INR 1.0 Sodium 134 L (136-145) mEq/L Potassium 5.0 (3.5-5.1) mEq/L Chloride 100 (98-107) mEq/L Carbon Dioxide 26 (23-29) mEq/L BUN 28 H (8-23) mg/dL Creatinine 1.11 (0.70-1.30) mg/dL Est GFR ( Amer) > 60 (> 60) Est GFR (Non-Af Amer) > 60 (> 60) BUN/Creatinine Ratio 25 (6-26) Glucose 132 H (70-105) mg/dL Calculated Osmolality 285 (280-300) Calcium 9.0 (8.6-10.3) mg/dL Total Bilirubin 0.5 (0.3-1.0) mg/dL AST 18 (13-39) Units/L ALT 25 (7-52) Units/L Alkaline Phosphatase 52 (34-104) Units/L Serum Total Protein 6.9 (6.4-8.9) g/dL Albumin 3.5 (3.5-5.7) g/dL Globulin 3.4 (2.4-3.5) g/dL Albumin/Globulin Ratio 1.0 L (1.1-2.2) Attestation Statement - Attestation Attestation: I examined this patient and my medical decision-making was reviewed with the [facility]/PA/Advanced Practice Nurse/Resident Physician. I agree with the documented findings, disposition and treatment plan as described except to the extent set forth below. I did see the patient is spoke with him and reviewed the x-ray and the patient will be admitted to hospitalist with orthopedic consult and we did speak with orthopedics and the patient will receive pain medication. 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 There is no syncopal episode. He said his leg gave out and he fell onto his knee. [id number]
[2018-09-19 09:05] LABS: Prothrombin Time 11.2 Seconds (9.4-12.1)
[2018-09-19 09:14] LABS: Alanine Aminotransferase 25 Units/L (7-52); Albumin 3.5 g/dL (3.5-5.7); Alkaline Phosphatase 52 Units/L (34-104); Aspartate Amino Transferase 18 Units/L (13-39); BUN/Creatinine Ratio 25 (6-26); Bilirubin,Total 0.5 mg/dL (0.3-1.0); Blood Urea Nitrogen 28 mg/dL (8-23); Carbon Dioxide 26 mEq/L (23-29); Chloride 100 mEq/L (98-107); Globulin 3.4 g/dL (2.4-3.5); Glucose 132 mg/dL (70-105); Osmolality,Calculated 285 (280-300); Sodium 134 mEq/L (136-145); Total Protein 6.9 g/dL (6.4-8.9); eGFR For Non-African Americans > 60 (> 60)
[2018-09-19] MEDS ORDERED: *HR* HYDROmorphone (PF) 1 MG/ML SYRINGE IVP ONE (09:56)
--- NOTE | 2018-09-19 11:33 | Electrocardiograph Report ---
[address] [address] Test Date: 2018-09-19 Pat Name: Miguel Angel Zuniga Department: EXAM6 Room: [facility] Gender: M Net Coordinator: : 1955 Requested By: Dameon Montero Order Number: [id number] Reading MD: Ken King Measurements Intervals [place] Rate: 78 P: 51 VT: 159 QRS: -43 QRSD: 108 T: 58 QT: 374 QTc: 426 Interpretive Statements Sinus rhythm Left anterior fascicular block Minimal ST elevation, anterior leads Electronically Signed On 09-19-2018 11:31:10 EDT by Ken King
[2018-09-19] MEDS: Ketorolac 30 MG/ML VIAL IVP PRN ×2 (12:10→18:24)
--- NOTE | 2018-09-19 13:27 | Internal Med History&Physical ---
Date of Encounter: 09/19/18 Time of Encounter: 11:00 Internal Medicine - H&P: HPI Chief complaint: Leg pain Admitted From: Home Plans for Post Hospital Care: Home History of present illness: Patient is a 63-year-old male with past medical history significant for sojourns syndrome, chronic pain syndrome and morbid obesity sleep apnea who presents due to left leg pain. Patient reports of standing up from seated position in his chair earlier today and suddenly his left knee collapsed and patient fell onto the ground. In the ER, x-ray showed communicated, impacted and angulated distal left femur diaphyseal fracture extending to the inner condyle her level. Orthopedics was consulted from the ER and patient will be admitted to the medical surgical floor for further management. Past Med Surg Social Fam HX - Past Medical History Medical history: arthritis, cancer Additional medical history: Sjogrens Syndrome. Left Lobectomy (Partial). Left Kidney Carcinoma Psychiatric history: no psych history - Past Surgical History Surgical History: cholecystectomy Additional surgical history: r foot,laminectomy,l kidney, R Lung Biopsy - Social History Smoking Status: Never smoker Smokeless Tobacco Status: No Alcohol use: occasionally Drug use: none - Family History Father Living Status: Hx Family Neuromuscular Disorders: Yes (Alzheimers) Mother Living Status: Still Living Internal Medicine - H&P: Meds Cholecalciferol (D-3) [Vitamin D] 2,000 unit PO DAILY 11/23/17 [History] Cyprohepatdine [Periactin] 4 mg PO HS PRN 11/23/17 [History] Docusate Sodium [Dok] 100 mg PO DAILY 11/23/17 [History] Ferrous Sulfate [Iron] 325 mg PO DAILY 11/23/17 [History] Indomethacin 50 mg PO Q8H PRN 11/23/17 [History] Ipratropium/Albuterol Sulfate [Combivent Respimat Inhal [place]] 4 gm IH Q6H PRN 11/23/17 [History] Lidocaine Patch [Lidoderm 5% patch] 1 each TP DAILY 11/23/17 [History] Meloxicam [Mobic] 7.5 mg PO BID 11/23/17 [History] Memantine HCl 10 mg PO BID 11/23/17 [History] Morphine Sulfate SR (12 HR) [MS Contin] 1 tab PO Q12HR 11/23/17 [History] Oxycodone HCl/Acetaminophen [Percocet 5-325 mg Tablet] 1 tab PO Q8H PRN 11/23/17 [History] Sennosides [Senokot] 8.6 mg PO DAILY 11/23/17 [History] Sildenafil Citrate [Viagra] 100 mg PO DAILY 11/23/17 [History] Tamsulosin [Flomax] 0.4 mg PO DAILY 11/23/17 [History] hydrOXYzine HCl [Hydroxyzine HCl] 50 mg PO BID PRN 11/23/17 [History] Allergy/AdvReac Type Severity Reaction Status Date / Time codeine AdvReac Swelling Verified 08/17/17 10:33 of Lip/Tongue/Throat All Systems PM: A 10-system review of systems was performed and is negative for pertinent findings except as documented above in the HPI. - Constitutional Vitals: Temp Pulse Resp BP Pulse Ox 98.2 F 79 16 95/71 98 09/19/18 07:36 09/19/18 09:32 09/19/18 10:37 09/19/18 10:37 09/19/18 09:32 Exam: General appearance: Present: A&O X 3, no acute distress - Head Head exam: Present: normocephalic - Eye Eye exam: Present: normal appearance - ENT ENT exam: Present: mucous membranes moist - Respiratory Respiratory exam: Present: CTAB. Absent: accessory muscle use, rales, rhonchi, wheezes - Cardiovascular Cardiovascular exam: Present: RRR, +S1, +S2. Absent: diastolic murmur, gallop, rubs, systolic murmur - GI/Abdominal GI/Abdominal exam: Present: normal bowel sounds, soft, no peritoneal signs. Absent: distended, tenderness - Extremities Exam Extremities exam: Absent: pedal edema - Neurological Exam Neurological exam: Present: alert, oriented X3, no focal deficits. Absent: altered - Psychiatric Psychiatric exam: -normal mood Skin exam: -normal color Internal Med - H&P Results - Labs CBC & Chem 7: 09/19/18 08:40 09/19/18 08:40 Labs: Short CBC 09/19/18 Range/Units 08:40 WBC 14.8 H (4.3-11.1) K/mcL Hgb 11.5 L (12.9-16.9) g/dL Hct 36.7 L (37.5-50.1) % Plt Count 261 (140-400) K/mcL Neutrophils # 12.9 H (1.6-8.9) K/mcL BMP 09/19/18 08:40 Sodium 134 L Potassium 5.0 Chloride 100 Carbon Dioxide 26 BUN 28 H Creatinine 1.11 Glucose 132 H Calcium 9.0 Liver Function 09/19/18 Range/Units 08:40 Total Bilirubin 0.5 (0.3-1.0) mg/dL AST 18 (13-39) Units/L ALT 25 (7-52) Units/L Alkaline Phosphatase 52 (34-104) Units/L Albumin 3.5 (3.5-5.7) g/dL - Impressions ITS Impressions Hip X-Ray 09/19/18 07:47 IMPRESSION: 1. No acute radiographic abnormality of the left hip or osseous pelvis. However, if an acute hip fracture remains of clinical concern, suggest dedicated hip MRI for more detailed evaluation if an occult fracture remains of clinical concern. 2. Mild symmetric bilateral hip osteoarthritis. D/ / 09/19/2018 08:39:00 Yoandy Simms MD / [facility] Interpreting Provider: Yoandy Simms MD Knee X-Ray 09/19/18 07:47 IMPRESSION: Comminuted, impacted and angulated distal femoral diaphyseal fracture extending to the intercondylar level. Question small tip fracture or avulsion fracture of the dorsal margin of the superior pole of the patella. D/ / 09/19/2018 08:38:09 Mor Jimenez MD / [facility] Interpreting Provider: Mor Jimenez MD Chest X-Ray 09/19/18 08:29 IMPRESSION: 1. Mild pulmonary vascular congestion and possible trace right pleural effusion. The left costophrenic angle is not included in the [id number]. D/ / Dacia Cheema MD / Dacia Cheema MD Interpreting Provider: Dacia Cheema MD - Assessment and Plan (1) Femoral fracture Current Visit: Yes Status: Acute Assessment and plan: Patient reports of standing up from seated position in his chair earlier today and suddenly his left knee collapsed and patient fell onto the ground. In the ER, x-ray showed communicated, impacted and angulated distal left femur diaphyseal fracture extending to the inner condyle her level. Orthopedics was consulted from the ER and appreciate recommendations Qualifiers: Encounter type: initial encounter Femur location: distal Fracture type: closed Fracture morphology: unspecified fracture morphology Laterality: left Qualified Code(s): S72.402A - Unspecified fracture of lower end of left femur, initial encounter for closed fracture (2) Sjogren's syndrome Current Visit: No Status: Chronic Assessment and plan: Continue home medications Qualifiers: Sjogren's organ involvement: unspecified organ involvement Qualified Code(s): M35.00 - Sicca syndrome, unspecified (3) Morbid obesity Current Visit: No Status: Chronic Assessment and plan: BMI of 43.8 (4) MILENA (obstructive sleep apnea) Current Visit: No Status: Chronic Assessment and plan: CPAP daily at bedtime (5) DVT prophylaxis Current Visit: Yes Status: Acute Assessment and plan: Heparin subcutaneous - Time Spent With Patient Total time spent is greater than 50% in coordination of care (as documented) at patient's floor/unit and/or counseling patient:
[2018-09-19] MEDS ORDERED: Naloxone 0.4 MG/ML INJ IVP PRN (13:28)
[2018-09-19] MEDS ORDERED: Sennosides 8.6 MG TABLET PO PRN (16:05)
[2018-09-19] MEDS ORDERED: traZODone 50 MG TABLET PO PRN (16:05)
[2018-09-19] MEDS: *HR* OxyCODONE/APAP 10/325 TABLET PO PRN (16:24)
[2018-09-19] MEDS: predniSONE 20 MG TABLET PO SCH (16:24)
[2018-09-19] MEDS: *HR* Heparin 5,000 UNIT/ML VIAL SQ SCH ×2 (16:25→23:05)
--- NOTE | 2018-09-19 17:23 | Orthopedic Consult Note ---
Date of Encounter: 09/19/18 Time of Encounter: 17:16 History of Present Illness Chief complaint: Left knee pain HPI: Mr. Zuniga is a 63 year old male who sustained an injury to his left leg when he arose from his chair at home and the leg reportedly gave out on him. He fell landing on his left knee. He had immediate pain. Was seen in the emergency room with this injury and had x-rays taken, this revealed evidence of a left distal femur fracture. Patient is admitted now for definitive management. Patient denies any other injuries. Denies neurovascular complaints. Patient does have a significant past medical history for Sjogren's syndrome with multiple complications including pulmonary and renal concerns as well as morbid obesity. I have reviewed the patient's completed history physical examination and medical record. Pertinent exam reveals a obese male in moderate distress secondary to left knee and leg pain. Exam is extremely limited due to the patient's body habitus, the pain involved as well as his being in a knee immobilizer. There does appear to be marked swelling about the knee. Distal neurosensory exam appears to be grossly intact. X-rays of the hip are reviewed and show no evidence of fractures. X-rays of the left knee reveal a comminuted, split T condylar fracture with the noted extension into the intercondylar region. There is some shortening and mild valgus deformity. There are some pre-existing arthritic changes in the knee. Impression: Displaced, comminuted T condylar fracture left distal femur (intra- articular extension of distal femur fracture) Recommendation: This fracture will require surgical fixation. I discussed with the patient and his the fracture and the treatment recommendations. 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 He is well aware that this is a surgical fracture and the treatment recommendation would be to proceed with a open reduction internal fixation. This is due to the split condyles that would require reduction and fixation. I do not feel that he is a candidate for retrograde intramedullary nailing. Discussed the surgical procedure as well as potential risks and complications including but not limited to bleeding, infection, blood clots, nonunion, malunion and nonunion as well as the increased risk for progressive posttraumatic arthritic changes. Patient understands and agrees with the plan of care. He has signed informed consent for the surgical procedure. Anticipate proceeding with surgery tomorrow when both operating time and implants are available. Thank you very much for allowing me to seen care for Mr. Zuniga. Sincerely, Scottie Riggs,DO Past Med Surg Social Fam HX - Past Medical History Medical history: arthritis, cancer Additional medical history: Sjogrens Syndrome. Left Lobectomy (Partial). Left Kidney Carcinoma Psychiatric history: no psych history - Past Surgical History Surgical History: cholecystectomy Additional surgical history: r foot,laminectomy,l kidney, R Lung Biopsy - Social History Smoking Status: Never smoker Smokeless Tobacco Status: No Alcohol use: occasionally Drug use: none - Family History Father Living Status: Hx Family Neuromuscular Disorders: Yes (Alzheimers) Mother Living Status: Still Living Medications and Allergies Cholecalciferol (D-3) [Vitamin D] 3,000 unit PO DAILY 11/23/17 [History] Ferrous Sulfate [Iron] 325 mg PO DAILY 11/23/17 [History] Lidocaine Patch [Lidoderm 5% patch] 1 patch TP DAILY PRN 11/23/17 [History] Meloxicam [Mobic] 7.5 mg PO BID 11/23/17 [History] Memantine HCl 10 mg PO BID 11/23/17 [History] Sennosides [Senokot] 8.6 mg PO DAILY PRN 11/23/17 [History] Sildenafil Citrate [Viagra] 100 mg PO DAILY PRN 11/23/17 [History] Morphine Sulfate [Arymo ER] 30 mg PO BID 09/19/18 [History] OxyCODONE/APAP 10/325 [Percocet 10/325 MG] 1 tab PO 5XD PRN 09/19/18 [History] PredniSONE [Deltasone] 60 mg PO DAILY 09/19/18 [History] Sulfamethoxazole/Trimeth DS [Bactrim DS] 1 tab PO MOWEFR 09/19/18 [History] Tamsulosin HCl [Flomax] 0.4 mg PO DAILY 09/19/18 [History] Trazodone HCl 150 mg PO HS PRN 09/19/18 [History] Allergy/AdvReac Type Severity Reaction Status Date / Time codeine AdvReac Swelling Verified 08/17/17 10:33 of Lip/Tongue/Throat All Systems Reviewed: The remainder of the systems were reviewed and are negative Physical Exam - Constitutional Vitals: Temp Pulse Resp BP Pulse Ox 98.8 F 86 20 118/74 97 09/19/18 15:20 09/19/18 15:20 09/19/18 15:20 09/19/18 15:20 09/19/18 15:20 Results - Labs Result Diagrams: 09/19/18 08:40 09/19/18 08:40 Labs: Abnormal lab results WBC 14.8 K/mcL (4.3-11.1) H 09/19/18 08:40 Hgb 11.5 g/dL (12.9-16.9) L 09/19/18 08:40 Hct 36.7 % (37.5-50.1) L 09/19/18 08:40 MCV 82.7 fL (83.0-100.0) L 09/19/18 08:40 MCH 25.9 pg (28.0-33.3) L 09/19/18 08:40 MCHC 31.3 g/dL (31.6-35.5) L 09/19/18 08:40 RDW 17.3 % (11.5-14.5) H 09/19/18 08:40 Neutrophils # 12.9 K/mcL (1.6-8.9) H 09/19/18 08:40 Sodium 134 mEq/L (136-145) L 09/19/18 08:40 BUN 28 mg/dL (8-23) H 09/19/18 08:40 Glucose 132 mg/dL (70-105) H 09/19/18 08:40 Albumin/Globulin Ratio 1.0 (1.1-2.2) L 09/19/18 08:40 H & H 09/19/18 Range/Units 08:40 Hgb 11.5 L (12.9-16.9) g/dL Hct 36.7 L (37.5-50.1) % All other labs normal. - Diagnostic results Hip x-ray: image reviewed Knee x-ray: image reviewed Consult Discharge Plan - Plan [facility]Primary Care Provider[facility] -
[2018-09-19] MEDS: *HR* HYDROmorphone (PF) 1 MG/ML SYRINGE IVP PRN ×2 (19:46→23:05)
[2018-09-20] MEDS: *HR* Heparin 5,000 UNIT/ML VIAL SQ SCH ×3 (01:58→22:13)
[2018-09-20] MEDS: *HR* Morphine Sulfate SR (12 HR) 30 MG TABLET.ER PO SCH ×2 (01:59→14:20)
[2018-09-20] MEDS: *HR* HYDROmorphone (PF) 1 MG/ML SYRINGE IVP PRN ×5 (03:25→21:55)
[2018-09-20] MEDS ORDERED: Cholecalciferol (D-3) 1,000 UNIT TABLET PO SCH (09:00)
[2018-09-20] MEDS: *HR* OxyCODONE/APAP 10/325 TABLET PO PRN (10:34)
[2018-09-20] MEDS: predniSONE 20 MG TABLET PO SCH (14:21)
[2018-09-20] MEDS ORDERED: Sulfamethoxazole/Trimeth DS 1 EACH TABLET PO SCH (16:05)
--- NOTE | 2018-09-20 16:33 | Anesthesia Evaluation PreOp ---
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: Other (opioid dependence) Other Medical History: Renal (Left renal carcinoma s/p left renal ablation), Other (Sjogren's syndrome with pulmonary complications on high dose steroids, BMI 44) Anesthesia History: Past Anesthesia (left kidney ablation, left lower lobectomy, right foot surgery, colonoscopy, cholecystectomy), Problems (airway obstruction after one surgery (required jaw thrust for 30 minutes)) Alcohol Use: occasionally Drug use: none Medications and Allergies Cholecalciferol (D-3) [Vitamin D] 3,000 unit PO DAILY 11/23/17 [History] Ferrous Sulfate [Iron] 325 mg PO DAILY 11/23/17 [History] Lidocaine Patch [Lidoderm 5% patch] 1 patch TP DAILY PRN 11/23/17 [History] Meloxicam [Mobic] 7.5 mg PO BID 11/23/17 [History] Memantine HCl 10 mg PO BID 11/23/17 [History] Sennosides [Senokot] 8.6 mg PO DAILY PRN 11/23/17 [History] Sildenafil Citrate [Viagra] 100 mg PO DAILY PRN 11/23/17 [History] Morphine Sulfate [Arymo ER] 30 mg PO BID 09/19/18 [History] OxyCODONE/APAP 10/325 [Percocet 10/325 MG] 1 tab PO 5XD PRN 09/19/18 [History] PredniSONE [Deltasone] 60 mg PO DAILY 09/19/18 [History] Sulfamethoxazole/Trimeth DS [Bactrim DS] 1 tab PO MOWEFR 09/19/18 [History] Tamsulosin HCl [Flomax] 0.4 mg PO DAILY 09/19/18 [History] Trazodone HCl 150 mg PO HS PRN 09/19/18 [History] Allergy/AdvReac Type Severity Reaction Status Date / Time codeine AdvReac Swelling Verified 08/17/17 10:33 of Lip/Tongue/Throat - Meds/Allergy Pre-op Review Medications Reviewed: Yes Allergies Reviewed: Yes Beta Blockers on Current Med List: No Anesthesia Results - Labs 09/19/18 08:40 09/19/18 08:40 - Imaging EKG: report reviewed, image reviewed (Sinus rhythm Left anterior fascicular block Minimal ST elevation, anterior leads) Chest x-ray: report reviewed, image reviewed (IMPRESSION: 1. Mild pulmonary vascular congestion and possible trace right pleural effusion. The left costophrenic angle is not included in the [id number].) Anesthesia Exam Last Vital Signs Temp 98.5 F 09/20/18 14:00 Pulse 84 09/20/18 14:00 Resp 16 09/20/18 14:00 BP 118/76 09/20/18 14:00 Pulse Ox 96 09/20/18 14:00 Weight: 138 kg - HEENT Pupil (Motor): Pupils equal, EOMI Mallampati: III Teeth: Edentulous Oral Opening: Greater than 3 - CARPENTER REFRIGERATOR LOC: Oriented - Cardiac Rhythm: Regular Murmur: None - Pulmonary Breath Sounds: bilateral Clear Respiratory Effort: Symmetrical Anesthesia Assess/Plan ASA Score: 4 Level of consciousness: Cooperative Anesthetic Plan: General, Precautions (stress dose steroids) Monitoring Plan: Standard Monitors Recovery Plan: PACU
[2018-09-20] MEDS ORDERED: Lidocaine -MPF 4% 5 ML AMPUL ONE (16:59)
[2018-09-20] MEDS ORDERED: Ondansetron 4 MG/2 ML VIAL ONE ×2 (17:00→18:16)
[2018-09-20] MEDS ORDERED: Lidocaine -MPF 2% 2 ML VIAL ONE (17:00)
[2018-09-20] MEDS ORDERED: *HR* Midazolam HCl 2 MG/2 ML VIAL ONE (17:00)
[2018-09-20] MEDS ORDERED: *HR* Propofol 200 MG/20 ML VIAL IVP ONE (17:00)
[2018-09-20] MEDS ORDERED: *HR* Succinylcholine 200 MG/10 ML VIAL IVP ONE (17:00)
[2018-09-20] MEDS ORDERED: *HR* FentaNYL (PF) 100 MCG/2 ML VIAL ONE (17:00)
[2018-09-20] MEDS ORDERED: Hydrocortisone Sodium Succ 100 MG/2 ML VIAL ONE (17:12)
[2018-09-20] MEDS ORDERED: KETAMINE HCL 50 MG/ML SYRINGE IV ONE (17:21)
[2018-09-20] MEDS ORDERED: Dexmedetomidine HCl 400 MCG/100 ML MLS IVC ONE (17:27)
[2018-09-20] MEDS ORDERED: ceFAZolin sodium 3,000 MG in 0.9 % Sodium Chloride 100 ML IVPB ONE (17:27)
[2018-09-20] MEDS ORDERED: Acetaminophen IV 1,000 MG/100 ML INFUS..BTL ONE (17:27)
[2018-09-20] MEDS ORDERED: *HR* FentaNYL (PF) 100 MCG/2 ML VIAL IVP PRN (17:31)
[2018-09-20] MEDS ORDERED: Albuterol 2.5 MG/3 ML NEBULIZER IH ONE (17:31)
[2018-09-20] MEDS ORDERED: *HR* OxyCODONE Immed Rel 5 MG TABLET PO PRN ×2 (17:31→19:41)
[2018-09-20] MEDS ORDERED: *HR* Promethazine 25 MG/ML VIAL IVP PRN (17:31)
[2018-09-20] MEDS ORDERED: *HR* PHENYLEPHRINE 1,000 MCG/10 ML SYRINGE IVP ONE ×2 (17:56→19:17)
[2018-09-20] MEDS ORDERED: EPHEDrine 50 MG/ML VIAL ONE (18:02)
[2018-09-20] MEDS ORDERED: Dexamethasone 4 MG/ML VIAL ONE (18:16)
[2018-09-20] MEDS ORDERED: *HR* HYDROmorphone (PF) 1 MG/ML SYRINGE IVP PRN (19:41)
--- NOTE | 2018-09-20 22:49 | Anesthesia Evaluation Post Op ---
Date of Encounter: 09/20/18 Time of Encounter: 21:20 - Discharge PostOp Status: Transfer Patient to floor (Patient's vital signs have been reviewed. Patient is stable postoperatively and has adequately recovered from anesthesia. Patient is determined to have stable airway patency and respiratory function including respiratory rate and oxygen saturation. Patient has a stable heart rate, blood pressure and adequate hydration. Patients mental status is acceptable. Patients temperature is appropriate. Pain and nausea are adequately controlled.)
[2018-09-20] MEDS ORDERED: Ketorolac 30 MG/ML VIAL IVP PRN (22:55)
[2018-09-20] MEDS ORDERED: Naloxone 0.4 MG/ML INJ IVP PRN (22:55)
[2018-09-20] MEDS ORDERED: Sennosides 8.6 MG TABLET PO PRN (22:55)
[2018-09-20] MEDS ORDERED: traZODone 50 MG TABLET PO PRN (22:55)
--- NOTE | 2018-09-20 22:57 | Internal Med Progress Note ---
Hospitalist Progress Note - Encounter Date of Encounter: 09/20/18 Time of Encounter: 19:00 - Subjective Interval History: SUBJECTIVE: The patient is admitted with left hip fracture. It happened, when he was standing up from standing position; his left leg gave up. The pain seems to be controlled. He has underlying Sjogrens syndrome. Complicated with development of non- Hodgkins lymphoma. 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 He was recently diagnosed with nonspecific pneumonia (associated with Sjogrens syndrome); put on prednisone at 60 mg daily. OBJECTIVE: Skin: Free of rash and discoloration. ENMT: Oral/pharyngeal mucosa is normal in appearance. Eyes: Sclera is white. There is no discharge from eyes. Respiratory: Normal breath sounds; no crackles or wheezes. CV: Heart is regular; no gallop or murmur. GI: Abdomen is soft and not tender. There is no palpable mass or visceromegaly. Neuro: There is no focal deficits. ADDITIONAL DATA: Hemoglobin is 11.5 with WBC of 14.8 thousand and normal platelet count. Electrolytes are normal. Creatinine is 1.11. Random glucose is 132. Liver function tests are normal. xxx. I ordered CBC, BMP and chest x-ray for tomorrow morning. ASSESSMENT AND PLAN: Left femoral fracture. The surgery will likely happen today. To continue when necessary Percocet. Sjogrens syndrome with nonspecific pneumonia. We have to continue his prednisone at 60 mg daily. This medication will definitely make his recovery from the fracture longer/more difficult. Objective sleep apnea. Continue CPAP. Morbid obesity with BMI of 43.8. For outpatient management. - Exam Vitals: Temp Pulse Resp BP Pulse Ox 97.5 F L 79 16 128/80 98 09/20/18 22:50 09/20/18 22:50 09/20/18 22:50 09/20/18 22:50 09/20/18 22:50 Exam: xx - Assessment and Plan (1) Femoral fracture Current Visit: Yes Status: Acute (2) Sjogren's syndrome Current Visit: No Status: Chronic (3) MILENA (obstructive sleep apnea) Current Visit: No Status: Chronic (4) Morbid obesity Current Visit: No Status: Chronic (5) DVT prophylaxis Current Visit: Yes Status: Acute - Time Spent with Patient Total time spent is greater than 50% in coordination of care (as documented) at patient's floor/unit and/or counseling patient: 25 - 35 minutes Plan of Care Discussed with: patient Internal Medicine: Result - Labs CBC & Chem 7: 09/19/18 08:40 09/19/18 08:40 - ABG Interpretation ABG results: PT/INR, D-dimer PT 11.2 Seconds (9.4-12.1) 09/19/18 08:40 - Impressions Impressions Hip X-Ray 09/19/18 07:47 IMPRESSION: 1. No acute radiographic abnormality of the left hip or osseous pelvis. However, if an acute hip fracture remains of clinical concern, suggest a dedicated hip MRI for more detailed evaluation if an occult fracture remains of clinical concern. 2. Mild symmetric bilateral hip osteoarthritis. D/ / 09/19/2018 08:39:00 Yoandy Simms MD / [email or web address] Interpreting Provider: Yoandy Simms MD Knee X-Ray 09/19/18 07:47 IMPRESSION: Comminuted, impacted and angulated distal femoral diaphyseal fracture extending to the intercondylar level. Question small tip fracture or avulsion fracture of the dorsal margin of the superior pole of the patella. D/ / 09/19/2018 08:38:09 [facility] Provider: Mor Jimenez MD Fluoroscopy 09/20/18 00:00 IMPRESSION: Intraoperative imaging demonstrating ORIF of the distal left femur without complication. D/ / Serge Jones MD / Serge Jones MD Interpreting Provider: Serge Jones MD Consult Discharge Plan - Plan [facility]errals: [facility] [Primary Care Provider] - (1) Femoral fracture Qualifiers: Encounter type: initial encounter Femur location: distal Fracture type: closed Fracture morphology: unspecified fracture morphology Laterality: left Qualified Code(s): S72.402A - Unspecified fracture of lower end of left femur, initial encounter for closed fracture (2) Sjogren's syndrome Qualifiers: Sjogren's organ involvement: unspecified organ involvement Qualified Code(s): M35.00 - Sicca syndrome, unspecified
--- NOTE | 2018-09-21 00:17 | Operative Note ---
Date of procedure: 09/20/18 Pre-op diagnosis: 1. Displaced, comminuted, intra-articular fracture left distal femur ([facility] Post-op diagnosis: same Procedure: 1. Open reduction internal fixation of left distal femur fracture 2. Fluoroscopic guidance for ORIF left distal femur fracture Implants: Synthes 8 hole 4.5 mm left curved condylar LCP with multiple screws Complications: None Anesthesia: GETA Surgeon: Scottie Riggs Was there an junior sales assistant present: No Estimated blood loss (cc): 300 Specimen: none Condition: stable Disposition: PACU Procedure in Detail: Gross findings: Patient is a obese white male with a body mass index of 44 with a very significant soft tissue envelope. Preoperative x-rays revealed a complex comminuted intra-articular fracture of the left distal femur. This was a Tcondylar type fracture with extension into the intercondylar region. There was marked comminution of the metadiaphyseal fragments. This is associated with fairly advanced arthritic changes in the left knee. The fracture was able to be treated with open reduction internal fixation. A near-anatomic reduction was obtained and maintained with several interfragmentary screws locking the intercondylar fracture line and this was followed by placing a lateral distal femoral plate and screws. Excellent position of the fracture and implants were noted with multiplanar fluoroscopy. Due to the patient's large body habitus patient positioning, prepping and draping in addition to the surgical procedure itself were all more difficult than normal. Procedure: Patient stated operating room on the hospital bed was administered ge neral anesthesia. Once adequate level of anesthesia have been obtained the patient was transferred to the operating room table. The fracture table was utilized. The left lower extremity was placed in longitudinal traction and the right lower extremity was ultimately able to be positioned out of harm's way with the well leg land. Positioning and verification of the patient's safety on the fracture table was truly difficult due to the patient's large size. At this time fluoroscopy was introduced. This was used to guide the initial reduction. The reduction was brought out to length with appropriate traction and improved alignment was noted. This is now followed by prepping and draping of the extremity in the normal standard fashion for surgery. A lateral distal femoral incision was created. This is carried out from approximately the level of joint line and carried proximally. Dissection was carried through the subcutaneous adipose tissue down the level of the fascia which was split the length the incision. Massive decompression of the vastus lateralis was noted. At this time the dissection was carried posterior to the vastus lateralis which was reflected anteriorly and the fracture was exposed. Massive amount of fracture hematoma was encountered and evacuated. At this time the knee joint proper was opened and a massive amount of hemarthrosis was likewise encountered and evacuated. Limited subperiosteal exposure was performed just enough to allow for fracture identification and reduction and then placement of the fracture implants. The fracture site was irrigated of clot and debris. At this time preliminary reduction of the distal intercondylar fragment was performed. The reduction was performed and stabilized with bone- holding clamps. At this time 2 interfragmentary screws were placed to prevent rotation. These were placed anteriorly to avoid any potential conflict with the proposed lateral plate. Once the distal fracture was reduced and stabilized the major fracture was then reduced with a combination of some rotation and then more reduction and stabilization with bone-holding clamps. An 8 hole curved condylar plate was then selected and positioned against the distal femur. Position of the plate was verified to be appropriate length with fluoroscopy. The plate was then temporarily held in position with bone-holding clamps. Repeat multiplane are fluoroscopy was used to verify the plate position in all planes. This is now followed by placing several lag screws proximal. Several locking screws were then placed. Multiple distal locking screws were then placed all with fluoroscopic guidance. The bone-holding clamp was removed. Excellent fracture reduction and position of all the implants was verified with multiplane are fluoroscopy. With implants in place attention was now paid to closure. Wound was irrigated. The fascia kristopher was closed only a short distance proximal and distal with the majority the fascia left open due to the massive protrusion of the vastus lateralis. This is now followed by closure of the subcutaneous tissue with #1 Vicryl in immediate subtendinous tissue approximation with multiple inverted interrupted 2-0 undyed Vicryl followed by skin approximation with stainless steel clips. Sterile dressings consisting of bacitracin Adaptic ABDs sterile cast padding and Canelo wraps are now applied and secured. Patient was now transferred from the operating table hospital bed. Patient was now awakened from anesthesia, extubated in the operating room and then transported to the postanesthesia care unit in stable and satisfactory condition. All sponge needle and instrument counts are correct. No specimens are sent for pathology.
[2018-09-21] MEDS: Sulfamethoxazole/Trimeth DS 1 EACH TABLET PO SCH (00:25)
[2018-09-21] MEDS: *HR* OxyCODONE/APAP 10/325 TABLET PO PRN ×2 (00:31→06:43)
[2018-09-21] MEDS ORDERED: ceFAZolin sodium 3,000 MG in 0.9 % Sodium Chloride 100 ML IVPB SCH (02:00)
[2018-09-21] MEDS: *HR* Morphine Sulfate SR (12 HR) 30 MG TABLET.ER PO SCH ×2 (02:32→15:15)
[2018-09-21 04:40] LABS: Basophils % 0.2 %; Hematocrit 30.4 % (37.5-50.1); Immature Granulocytes % 1.2 % (0-4); Lymphocytes % 6.4 %; Mean Corpuscular HGB Conc 31.9 g/dL (31.6-35.5); Mean Corpuscular Hemoglobin 26.1 pg (28.0-33.3); Mean Corpuscular Volume 81.9 fL (83.0-100.0); Mean Platelet Volume 9.7 fL (9.4-12.4); Monocytes % 6.6 %; Neutrophils # 13.3 K/mcL (1.6-8.9); Platelet Count 230 K/mcL (140-400); Red Blood Count 3.71 M/mcL (4.19-5.50); Red Cell Distribution Width 17.2 % (11.5-14.5); Segmented Neutrophils % 85.6 %
[2018-09-21 04:41] LABS: Hemoglobin 9.7 g/dL (12.9-16.9)
[2018-09-21 04:58] LABS: Calcium 8.9 mg/dL (8.6-10.3); Potassium 5.6 mEq/L (3.5-5.1)
[2018-09-21] MEDS: *HR* Heparin 5,000 UNIT/ML VIAL SQ SCH ×3 (05:09→22:04)
[2018-09-21] MEDS: Cholecalciferol (D-3) 1,000 UNIT TABLET PO SCH (08:39)
[2018-09-21] MEDS: *HR* HYDROmorphone (PF) 1 MG/ML SYRINGE IVP PRN ×2 (08:40→13:06)
[2018-09-21] MEDS: predniSONE 20 MG TABLET PO SCH (08:40)
[2018-09-21] MEDS ORDERED: *HR* Morphine Sulfate SR (12 HR) 30 MG TABLET.ER PO SCH (18:00)
--- NOTE | 2018-09-21 20:57 | Orthopedics Progress Note ---
Date of Encounter: 09/21/18 Time of Encounter: 20:53 Subjective Principal diagnosis: Left distal femur fracture Interval history: 09/21/2018. Patient is postop day #1 ORIF of complex left distal femur fracture. Patient is complaining of pain. Patient not happy that parenteral hydromorphone was discontinued. Concern about his routine pain not being adequately treated in addition to the pain from his femur fracture. Vital signs are stable. Patient is afebrile. Hemoglobin has dropped somewhat. Canelo wrap dressings remain clean and dry. Impression: POD #1 ORIF left distal femur fracture Plan: I discussed at length with the patient that our goal is pain management and that we will not make him pain-free rather her goal is to allow him to begin physical therapy and ambulation. Discussed with the patient that his lateral fascia was not able to be closed due to the massive involvement of the underlying muscle. Also discussed that this should not in any way impact his ability to ambulate. He understands that he is strict nonweightbearing on left lower extremity. Patient is planning to go to [facility] to [facility] his [facility], anticipate discharge Sunday at the soonest. Have added oral hydromorphone for pain relief as needed. Objective Vital signs: Vital Signs Temp Pulse Resp BP Pulse Ox 09/21/18 18:40 98.8 F 102 20 119/69 94 09/21/18 16:07 98.4 F 106 20 113/70 95 09/21/18 11:00 98.4 F 95 18 129/78 94 09/21/18 08:49 95 09/21/18 07:44 97.7 F 91 17 122/73 95 09/21/18 03:30 97.8 F 83 16 121/77 93 09/21/18 02:38 97.7 F 79 16 123/81 98 09/21/18 00:27 97.7 F 86 16 128/55 99 09/20/18 23:23 97.6 F 79 18 129/82 98 09/20/18 22:50 97.5 F L 79 16 128/80 98 09/20/18 22:18 97.5 F L 72 16 121/75 97 09/20/18 22:03 97.6 F 74 16 118/76 96 09/20/18 21:20 99.3 F 78 14 116/75 98 09/20/18 21:10 77 16 115/69 98 09/20/18 21:00 79 18 123/71 98 Intake and Output 09/21/18 09/21/18 09/21/18 07:59 15:59 23:59 Intake Total 0 / 0 360 / 360 700 / 700 Output Total 250 / 250 450 / 450 0 / 0 Balance -250 / -250 -90 / -90 700 / 700 Intake: Oral 0 / 0 360 / 360 700 / 700 Output: Urine 250 / 250 450 / 450 0 / 0 Other: Meal Lunch Dinner Percent of Meal Consumed 100% 0% Weight 151.73 kg Patient Weight 09/21/18 23:59 Weight 151.73 kg - Labs CBC & BMP: 09/21/18 04:14 09/21/18 04:14 Labs: Abnormal lab results WBC 15.6 K/mcL (4.3-11.1) H 09/21/18 04:14 RBC 3.71 M/mcL (4.19-5.50) L 09/21/18 04:14 Hgb 9.7 g/dL (12.9-16.9) L D 09/21/18 04:14 Hct 30.4 % (37.5-50.1) L 09/21/18 04:14 MCV 81.9 fL (83.0-100.0) L 09/21/18 04:14 MCH 26.1 pg (28.0-33.3) L 09/21/18 04:14 RDW 17.2 % (11.5-14.5) H 09/21/18 04:14 Neutrophils # 13.3 K/mcL (1.6-8.9) H 09/21/18 04:14 Sodium 134 mEq/L (136-145) L 09/21/18 04:14 Potassium 5.6 mEq/L (3.5-5.1) H 09/21/18 04:14 BUN 39 mg/dL (8-23) H 09/21/18 04:14 Creatinine 1.52 mg/dL (0.70-1.30) H 09/21/18 04:14 Est GFR ( Amer) 56 (> 60) L 09/21/18 04:14 Est GFR (Non-Af Amer) 47 (> 60) L 09/21/18 04:14 Glucose 175 mg/dL (70-105) H 09/21/18 04:14 Albumin/Globulin Ratio 1.0 (1.1-2.2) L 09/19/18 08:40 Consult Discharge Plan - Plan [facility]errals: [facility] [Primary Care Provider] -
[2018-09-21] MEDS: *HR* HYDROmorphone 4 MG TABLET PO PRN (22:03)
[2018-09-22] MEDS: *HR* OxyCODONE/APAP 10/325 TABLET PO PRN ×3 (00:27→13:50)
[2018-09-22] MEDS: *HR* Morphine Sulfate SR (12 HR) 30 MG TABLET.ER PO SCH ×2 (02:07→14:50)
[2018-09-22] MEDS: *HR* HYDROmorphone 4 MG TABLET PO PRN ×4 (03:29→22:05)
--- NOTE | 2018-09-22 06:13 | Internal Med Progress Note ---
Hospitalist Progress Note - Encounter Date of Encounter: 09/21/18 Time of Encounter: 19:00 - Subjective Interval History: SUBJECTIVE: The patient felt that surgery for repair of his left hip fracture yesterday. Other than pain in the area of left hip he is not voicing any other symptoms. He has underlying Sjogrens syndrome. 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 He was recently diagnosed with nonspecific pneumonia (associated with Sjogrens syndrome); put on prednisone at 60 mg daily. OBJECTIVE: Skin: Free of rash and discoloration. ENMT: Oral/pharyngeal mucosa is normal in appearance. Eyes: Sclera is white. There is no discharge from eyes. Respiratory: Normal breath sounds; no crackles or wheezes. CV: Heart is regular; no gallop or murmur. GI: Abdomen is soft and not tender. There is no palpable mass or visceromegaly. Neuro: There is no focal deficits. ADDITIONAL DATA: Hemoglobin is 9.7; 11.5 yesterday. With WBC of 15.6 thousand and normal platelet count. BMP shows increased her potassium of 5.6 at increased creatinine of 1.52. ASSESSMENT AND PLAN: Left femoral fracture. Underwent surgery yesterday. I will switch him from IV opiates to oral opiates. Sjogrens syndrome with nonspecific pneumonia. We have to continue his predn isone at 60 mg daily. This medication will definitely make his recovery from the fracture longer/more difficult. Objective sleep apnea. Continue CPAP. Morbid obesity with BMI of 43.8. For outpatient management. - Exam Vitals: Temp Pulse Resp BP Pulse Ox 97.6 F 94 18 135/77 94 09/22/18 03:35 09/22/18 03:35 09/22/18 03:35 09/22/18 03:35 09/22/18 03:35 Exam: xx - Assessment and Plan (1) Femoral fracture Current Visit: Yes Status: Acute (2) Sjogren's syndrome Current Visit: No Status: Chronic (3) MILENA (obstructive sleep apnea) Current Visit: No Status: Chronic (4) Morbid obesity Current Visit: No Status: Chronic (5) DVT prophylaxis Current Visit: Yes Status: Acute - Time Spent with Patient Total time spent is greater than 50% in coordination of care (as documented) at patient's floor/unit and/or counseling patient: 25 - 35 minutes Plan of Care Discussed with: patient Internal Medicine: Result - Labs CBC & Chem 7: 09/21/18 04:14 09/21/18 04:14 - ABG Interpretation ABG results: PT/INR, D-dimer PT 11.2 Seconds (9.4-12.1) 09/19/18 08:40 - Impressions Impressions Chest X-Ray 09/21/18 07:00 IMPRESSION: Stable mild congestive changes D/ / Ahsan Escamilla MD / Ahsan Escamilla MD Interpreting Provider: Ahsan Escamilla MD Consult Discharge Plan - Plan [facility]errals: [facility] [Primary Care Provider] - (1) Femoral fracture Qualifiers: Encounter type: initial encounter Femur location: distal Fracture type: closed Fracture morphology: unspecified fracture morphology Laterality: left Qualified Code(s): S72.402A - Unspecified fracture of lower end of left femur, initial encounter for closed fracture (2) Sjogren's syndrome Qualifiers: Sjogren's organ involvement: unspecified organ involvement Qualified Code(s): M35.00 - Sicca syndrome, unspecified
[2018-09-22] MEDS: *HR* Heparin 5,000 UNIT/ML VIAL SQ SCH ×3 (06:42→22:05)
[2018-09-22] MEDS: predniSONE 20 MG TABLET PO SCH (09:12)
[2018-09-22] MEDS: Cholecalciferol (D-3) 1,000 UNIT TABLET PO SCH (09:12)
[2018-09-22 14:51] LABS: Basophils % 0.1 %; Eosinophils % 0.1 %; Hematocrit 26.6 % (37.5-50.1); Hemoglobin 8.4 g/dL (12.9-16.9); Immature Granulocytes % 1.2 % (0-4); Lymphocytes # 0.7 K/mcL (0.6-4.6); Mean Corpuscular HGB Conc 31.6 g/dL (31.6-35.5); Mean Corpuscular Hemoglobin 26.6 pg (28.0-33.3); Mean Corpuscular Volume 84.2 fL (83.0-100.0); Mean Platelet Volume 9.6 fL (9.4-12.4); Monocytes # 0.6 K/mcL (0.0-1.3); Monocytes % 6.3 %; Neutrophils # 8.3 K/mcL (1.6-8.9); Platelet Count 172 K/mcL (140-400); Red Blood Count 3.16 M/mcL (4.19-5.50); Red Cell Distribution Width 17.3 % (11.5-14.5); Segmented Neutrophils % 85.3 %
[2018-09-22 15:09] LABS: Calcium 8.9 mg/dL (8.6-10.3); Potassium 4.8 mEq/L (3.5-5.1)
--- NOTE | 2018-09-22 16:35 | Orthopedics Progress Note ---
Date of Encounter: 09/22/18 Time of Encounter: 16:33 Subjective Principal diagnosis: Left distal femur fracture Interval history: 09/21/2018. Patient is postop day #1 ORIF of complex left distal femur fracture. Patient is complaining of pain. Patient not happy that parenteral hydromorphone was discontinued. Concern about his routine pain not being adequately treated in addition to the pain from his femur fracture. Vital signs are stable. Patient is afebrile. Hemoglobin has dropped somewhat. Canelo wrap dressings remain clean and dry. Impression: POD #1 ORIF left distal femur fracture Plan: I discussed at length with the patient that our goal is pain management and that we will not make him pain-free rather her goal is to allow him to begin physical therapy and ambulation. Discussed with the patient that his lateral fascia was not able to be closed due to the massive involvement of the underlying muscle. Also discussed that this should not in any way impact his ability to ambulate. He understands that he is strict nonweightbearing on left lower extremity. Patient is planning to go to the [facility] to continue his rehabilitation, anticipate discharge Sunday at the soonest. Have added oral hydromorphone for pain relief as needed. 09/22/2018. Patient POD #2 ORIF left distal femur fracture. Patient states that pain management is much improved with oral Dilaudid. Limited ambulation thus far. Vital signs are stable. Patient is afebrile. Pulse is hovering about 100. Canelo wrap dressings are clean and dry. Hemoglobin is down to 8.4 with a normal platelet count. Kidney function is slightly worse. Impression: POD #2 ORIF left distal femur fracture Recommendations: Orthopedic status is stable. Recommended the patient continue to work on range of motion of his knee foot and ankle as well as working on quadriceps exercises. Needs to maintain a strict nonweightbearing status. If the patient is discharge within the next 24 hours would need follow-up with me in about 2 weeks. Would maintain the current dressings for about 5 days postop and then start daily dressing care with Neosporin and a sterile dressing. Objective Vital signs: Vital Signs Temp Pulse Resp BP Pulse Ox 09/22/18 11:04 98.3 F 103 16 149/75 93 09/22/18 09:19 94 09/22/18 06:51 99.0 F 108 20 118/77 94 09/22/18 03:35 97.6 F 94 18 135/77 94 09/22/18 00:52 98.6 F 99 18 109/66 94 09/21/18 18:40 98.8 F 102 20 119/69 94 Intake and Output 09/22/18 09/22/18 09/22/18 07:59 15:59 23:59 Intake Total 0 / 0 600 / 600 Output Total 675 / 675 800 / 800 Balance -675 / -675 -200 / -200 Intake: Oral 0 / 0 600 / 600 Output: Urine 675 / 675 800 / 800 Other: Meal Lunch Percent of Meal Consumed 100% Weight 152.13 kg Patient Weight 09/22/18 23:59 Weight 152.13 kg - Labs CBC & BMP: 09/22/18 14:40 09/22/18 14:40 Labs: Abnormal lab results RBC 3.16 M/mcL (4.19-5.50) L 09/22/18 14:40 Hgb 8.4 g/dL (12.9-16.9) L 09/22/18 14:40 Hct 26.6 % (37.5-50.1) L 09/22/18 14:40 MCH 26.6 pg (28.0-33.3) L 09/22/18 14:40 RDW 17.3 % (11.5-14.5) H 09/22/18 14:40 Sodium 134 mEq/L (136-145) L 09/22/18 14:40 BUN 49 mg/dL (8-23) H 09/22/18 14:40 Creatinine 1.92 mg/dL (0.70-1.30) H 09/22/18 14:40 Est GFR ( Amer) 43 (> 60) L 09/22/18 14:40 Est GFR (Non-Af Amer) 36 (> 60) L 09/22/18 14:40 Glucose 183 mg/dL (70-105) H 09/22/18 14:40 Albumin/Globulin Ratio 1.0 (1.1-2.2) L 09/19/18 08:40 Consult Discharge Plan - Plan [facility]errals: [facility] [Primary Care Provider] -
--- NOTE | 2018-09-23 00:17 | Internal Med Progress Note ---
Hospitalist Progress Note - Encounter Date of Encounter: 09/22/18 Time of Encounter: 19:00 - Subjective Interval History: SUBJECTIVE: The patient had surgery for repair of his left hip fracture 2 days ago. Other than pain in the area of left hip he is not voicing any other symptoms. He has underlying Sjogrens syndrome. 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 He was recently diagnosed with nonspecific pneumonia (associated with Sjogrens syndrome); put on prednisone at 60 mg daily. OBJECTIVE: Skin: Free of rash and discoloration. ENMT: Oral/pharyngeal mucosa is normal in appearance. Eyes: Sclera is white. There is no discharge from eyes. Respiratory: Normal breath sounds; no crackles or wheezes. CV: Heart is regular; no gallop or murmur. GI: Abdomen is soft and not tender. There is no palpable mass or visceromegaly. Neuro: There is no focal deficits. ADDITIONAL DATA: Hemoglobin is 8.4; 9.7 yesterday. With normal WBC/platelet count. BMP shows increasing creatinine; 1.92 today and 1.113 days ago. With normal electrolytes. And fasting glucose of 183. ASSESSMENT AND PLAN: Left femoral fracture. Underwent surgery yesterday. We try to keep his pain under control. He will be getting MS Contin and when necessary oral Dilaudid. I discontinued his Percocet tablets. The patient gets when necessary IV Toradol. Sjogrens syndrome with nonspecific pneumonia. We have to continue his prednisone at 60 mg daily. This medication will definitely make his recovery from the fracture longer/more difficult. He has developed some acute kidney injury. Likely due to not taking satisfactory amounts of fluids. His BMP will be repeated tomorrow. We may need to start IV fluids. Objective sleep apnea. Continue CPAP. Morbid obesity with BMI of 43.8. For outpatient management. - Exam Vitals: Temp Pulse Resp BP Pulse Ox 98 F 92 20 134/76 96 09/22/18 23:19 09/22/18 23:19 09/22/18 23:19 09/22/18 23:19 09/22/18 23:19 Exam: xx - Assessment and Plan (1) Femoral fracture Current Visit: Yes Status: Acute (2) Sjogren's syndrome Current Visit: No Status: Chronic (3) SUSAN (acute kidney injury) Current Visit: Yes Status: Acute (4) MILENA (obstructive sleep apnea) Current Visit: No Status: Chronic (5) Morbid obesity Current Visit: No Status: Chronic - Time Spent with Patient Total time spent is greater than 50% in coordination of care (as documented) at patient's floor/unit and/or counseling patient: 25 - 35 minutes Plan of Care Discussed with: patient Internal Medicine: Result - Labs CBC & Chem 7: 09/22/18 14:40 09/22/18 14:40 Labs: Short CBC 09/22/18 Range/Units 14:40 WBC 9.8 (4.3-11.1) K/mcL Hgb 8.4 L (12.9-16.9) g/dL Hct 26.6 L (37.5-50.1) % Plt Count 172 (140-400) K/mcL Neutrophils # 8.3 (1.6-8.9) K/mcL BMP 09/22/18 14:40 Sodium 134 L Potassium 4.8 Chloride 101 Carbon Dioxide 25 BUN 49 H Creatinine 1.92 H Glucose 183 H Calcium 8.9 - ABG Interpretation ABG results: PT/INR, D-dimer PT 11.2 Seconds (9.4-12.1) 09/19/18 08:40 Consult Discharge Plan - Plan [facility]errals: [facility] [Primary Care Provider] - (1) Femoral fracture Qualifiers: Encounter type: initial encounter Femur location: distal Fracture type: closed Fracture morphology: unspecified fracture morphology Laterality: left Qualified Code(s): S72.402A - Unspecified fracture of lower end of left femur, initial encounter for closed fracture (2) Sjogren's syndrome Qualifiers: Sjogren's organ involvement: unspecified organ involvement Qualified Code(s): M35.00 - Sicca syndrome, unspecified
[2018-09-23] MEDS: *HR* Morphine Sulfate SR (12 HR) 30 MG TABLET.ER PO SCH ×2 (02:05→13:28)
[2018-09-23] MEDS: *HR* HYDROmorphone 4 MG TABLET PO PRN ×4 (04:42→20:49)
[2018-09-23] MEDS: *HR* Heparin 5,000 UNIT/ML VIAL SQ SCH ×3 (06:00→20:49)
[2018-09-23 07:13] LABS: Basophils % 0.2 %; Hematocrit 26.4 % (37.5-50.1); Hemoglobin 8.2 g/dL (12.9-16.9); Immature Granulocytes % 2.5 % (0-4); Lymphocytes # 1.6 K/mcL (0.6-4.6); Mean Corpuscular HGB Conc 31.1 g/dL (31.6-35.5); Mean Corpuscular Hemoglobin 26.2 pg (28.0-33.3); Mean Corpuscular Volume 84.3 fL (83.0-100.0); Mean Platelet Volume 9.8 fL (9.4-12.4); Monocytes # 1.1 K/mcL (0.0-1.3); Monocytes % 11.6 %; Neutrophils # 6.5 K/mcL (1.6-8.9); Platelet Count 164 K/mcL (140-400); Red Blood Count 3.13 M/mcL (4.19-5.50); Red Cell Distribution Width 17.6 % (11.5-14.5); Segmented Neutrophils % 68.7 %
[2018-09-23 07:29] LABS: BUN/Creatinine Ratio 36 (6-26); Blood Urea Nitrogen 46 mg/dL (8-23); Calcium 8.9 mg/dL (8.6-10.3); Carbon Dioxide 27 mEq/L (23-29); Chloride 104 mEq/L (98-107); Glucose 149 mg/dL (70-105); Osmolality,Calculated 299 (280-300); Potassium 4.8 mEq/L (3.5-5.1); Sodium 137 mEq/L (136-145); eGFR For Non-African Americans 57 (> 60)
[2018-09-23] MEDS: Cholecalciferol (D-3) 1,000 UNIT TABLET PO SCH (09:18)
[2018-09-23] MEDS: predniSONE 20 MG TABLET PO SCH (12:08)
--- NOTE | 2018-09-23 19:51 | Orthopedics Progress Note ---
Date of Encounter: 09/23/18 Time of Encounter: 19:48 Subjective Principal diagnosis: Left distal femur fracture Interval history: 09/21/2018. Patient is postop day #1 ORIF of complex left distal femur fracture. Patient is complaining of pain. Patient not happy that parenteral hydromorphone was discontinued. Concern about his routine pain not being adequately treated in addition to the pain from his femur fracture. Vital signs are stable. Patient is afebrile. Hemoglobin has dropped somewhat. Canelo wrap dressings remain clean and dry. Impression: POD #1 ORIF left distal femur fracture Plan: I discussed at length with the patient that our goal is pain management and that we will not make him pain-free rather her goal is to allow him to begin physical therapy and ambulation. Discussed with the patient that his lateral fascia was not able to be closed due to the massive involvement of the underlying muscle. Also discussed that this should not in any way impact his ability to ambulate. He understands that he is strict nonweightbearing on left lower extremity. Patient is planning to go to the [facility] to continue his rehabilitation, anticipate discharge Sunday at the soonest. Have added oral hydromorphone for pain relief as needed. 09/22/2018. Patient POD #2 ORIF left distal femur fracture. Patient states that pain management is much improved with oral Dilaudid. Limited ambulation thus far. Vital signs are stable. Patient is afebrile. Pulse is hovering about 100. Canelo wrap dressings are clean and dry. Hemoglobin is down to 8.4 with a normal platelet count. Kidney function is slightly worse. Impression: POD #2 ORIF left distal femur fracture Recommendations: Orthopedic status is stable. Recommended the patient continue to work on range of motion of his knee foot and ankle as well as working on quadriceps exercises. Needs to maintain a strict nonweightbearing status. If the patient is discharge within the next 24 hours would need follow-up with me in about 2 weeks. Would maintain the current dressings for about 5 days postop and then start daily dressing care with Neosporin and a sterile dressing. 09/23/2018. Patient POD #3 ORIF left distal femur fracture. Patient unhappy that he has not been approved to go to the [facility] for continuation of his rehabilitation. Concern that any non[facility] discharge result in difficulty main taining the continuity of [facility]. Vital signs are stable. Patient is afebrile. Canelo wrap dressings clean and dry. Motion appears to be slightly improved. Hemoglobin 8.2 and relatively stable. Platelet count 164. Kidney function is improved. Impression: POD #3 ORIF left distal femur fracture. Recommendations: As noted the patient's orthopedic status is stable. Can be discharge at any time maintaining the weight restrictions as noted. No intervention required at this time. Objective Vital signs: Vital Signs Temp Pulse Resp BP Pulse Ox 09/23/18 19:26 98.5 F 93 18 120/71 95 09/23/18 14:00 98.3 F 96 18 144/79 96 09/23/18 10:00 98.0 F 89 18 139/75 95 09/23/18 06:37 98.4 F 93 18 127/71 95 09/23/18 04:27 99.0 F 99 18 126/73 96 09/22/18 23:19 98 F 92 20 134/76 96 Intake and Output 09/23/18 09/23/18 09/23/18 07:59 15:59 23:59 Intake Total 350 / 350 240 / 240 790 / 790 Output Total 1275 / 1275 1025 / 1025 500 / 500 Balance -925 / -925 -785 / -785 290 / 290 Intake: Oral 350 / 350 240 / 240 790 / 790 Output: Urine 1275 / 1275 1025 / 1025 500 / 500 Other: Meal Lunch Dinner Percent of Meal Consumed 100% 100% Stool Size Copious Stool Consistency formed Weight 151.5 kg Patient Weight 09/23/18 23:59 Weight 151.5 kg - Labs CBC & BMP: 09/23/18 06:49 09/23/18 06:49 Labs: Abnormal lab results RBC 3.13 M/mcL (4.19-5.50) L 09/23/18 06:49 Hgb 8.2 g/dL (12.9-16.9) L 09/23/18 06:49 Hct 26.4 % (37.5-50.1) L 09/23/18 06:49 MCH 26.2 pg (28.0-33.3) L 09/23/18 06:49 MCHC 31.1 g/dL (31.6-35.5) L 09/23/18 06:49 RDW 17.6 % (11.5-14.5) H 09/23/18 06:49 BUN 46 mg/dL (8-23) H 09/23/18 06:49 Est GFR (Non-Af Amer) 57 (> 60) L 09/23/18 06:49 BUN/Creatinine Ratio 36 (6-26) H 09/23/18 06:49 Glucose 149 mg/dL (70-105) H 09/23/18 06:49 Albumin/Globulin Ratio 1.0 (1.1-2.2) L 09/19/18 08:40 Consult Discharge Plan - Plan [facility]errals: [facility] [Primary Care Provider] -
[2018-09-23] MEDS: Sulfamethoxazole/Trimeth DS 1 EACH TABLET PO SCH (22:50)
[2018-09-24] MEDS: *HR* HYDROmorphone 4 MG TABLET PO PRN ×4 (00:50→21:10)
[2018-09-24] MEDS: *HR* Morphine Sulfate SR (12 HR) 30 MG TABLET.ER PO SCH ×2 (02:30→14:36)
[2018-09-24] MEDS: *HR* Heparin 5,000 UNIT/ML VIAL SQ SCH ×3 (06:06→21:10)
--- NOTE | 2018-09-24 06:45 | Internal Med Progress Note ---
Hospitalist Progress Note - Encounter Date of Encounter: 09/23/18 Time of Encounter: 19:00 - Subjective Interval History: SUBJECTIVE: The patient is very nervous today. His [facility] insurance is telling him to us, that his rehab services will be not covered. We offered him coverage under Medicare. He does not want to take it now. His left hip pain is under fair control. He continues physical therapy. See their notes. ------ The patient had surgery for repair of his left hip fracture 2 days ago. Other than pain in the area of left hip he is not voicing any other symptoms. He has underlying Sjogrens syndrome. Complicated with development of non-Ho dgkins lymphoma. 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 He was recently diagnosed with nonspecific pneumonia (associated with Sjogrens syndrome); put on prednisone at 60 mg daily. OBJECTIVE: Skin: Free of rash and discoloration. ENMT: Oral/pharyngeal mucosa is normal in appearance. Eyes: Sclera is white. There is no discharge from eyes. Respiratory: Normal breath sounds; no crackles or wheezes. CV: Heart is regular; no gallop or murmur. GI: Abdomen is soft and not tender. There is no palpable mass or visceromegaly. Neuro: There is no focal deficits. ADDITIONAL DATA: Hemoglobin is 8.2; 8.4 yesterday. With normal WBC/platelet count. He is normal. ASSESSMENT AND PLAN: Left femoral fracture. Underwent surgery the day before yesterday. The pain is under control. To continue MS Contin with when necessary oral Percocet and/or when necessary IV Toradol. Sjogrens syndrome with nonspecific pneumonia. We have to continue his prednisone at 60 mg daily. This medication will definitely make his recovery from the fracture longer/more difficult. Acute kidney injury. Likely secondary to surgery/volume depletion. Subsided. Objective sleep apnea. Continue CPAP. Morbid obesity with BMI of 43.8. For outpatient management. Disposition: He can be discharged to rehab any time. - Exam Vitals: Temp Pulse Resp BP Pulse Ox 98.5 F 94 20 131/67 97 09/23/18 23:15 09/23/18 23:15 09/23/18 23:15 09/23/18 23:15 09/23/18 23:15 Exam: xx - Assessment and Plan (1) Femoral fracture Current Visit: Yes Status: Acute (2) Sjogren's syndrome Current Visit: No Status: Chronic (3) SUSAN (acute kidney injury) Current Visit: Yes Status: Acute (4) MILENA (obstructive sleep apnea) Current Visit: No Status: Chronic (5) Morbid obesity Current Visit: No Status: Chronic - Time Spent with Patient Total time spent is greater than 50% in coordination of care (as documented) at patient's floor/unit and/or counseling patient: 25 - 35 minutes Plan of Care Discussed with: patient Internal Medicine: Result - Labs CBC & Chem 7: 09/23/18 06:49 09/23/18 06:49 Labs: Short CBC 09/23/18 Range/Units 06:49 WBC 9.4 (4.3-11.1) K/mcL Hgb 8.2 L (12.9-16.9) g/dL Hct 26.4 L (37.5-50.1) % Plt Count 164 (140-400) K/mcL Neutrophils # 6.5 (1.6-8.9) K/mcL BMP 09/23/18 06:49 Sodium 137 Potassium 4.8 Chloride 104 Carbon Dioxide 27 BUN 46 H Creatinine 1.28 Glucose 149 H Calcium 8.9 - ABG Interpretation ABG results: PT/INR, D-dimer PT 11.2 Seconds (9.4-12.1) 09/19/18 08:40 Consult Discharge Plan - Plan [facility]errals: [facility] [Primary Care Provider] - (1) Femoral fracture Qualifiers: Encounter type: initial encounter Femur location: distal Fracture type: closed Fracture morphology: unspecified fracture morphology Laterality: left Qualified Code(s): S72.402A - Unspecified fracture of lower end of left femur, initial encounter for closed fracture (2) Sjogren's syndrome Qualifiers: Sjogren's organ involvement: unspecified organ involvement Qualified Code(s): M35.00 - Sicca syndrome, unspecified
[2018-09-24] MEDS: predniSONE 20 MG TABLET PO SCH (09:30)
[2018-09-24] MEDS: Cholecalciferol (D-3) 1,000 UNIT TABLET PO SCH (09:30)
[2018-09-25] MEDS: *HR* Morphine Sulfate SR (12 HR) 30 MG TABLET.ER PO SCH ×2 (02:26→14:42)
[2018-09-25] MEDS: *HR* Heparin 5,000 UNIT/ML VIAL SQ SCH ×2 (06:16→14:42)
--- NOTE | 2018-09-25 06:52 | Internal Med Progress Note ---
Hospitalist Progress Note - Encounter Date of Encounter: 09/24/18 Time of Encounter: 19:00 - Subjective Interval History: SUBJECTIVE: His left hip pain is under fair control. He continues physical therapy. Denies chest pain and difficulty breathing. Denies coughing and wheezing. ------ The patient had surgery for repair of his left hip fracture. He has underlying Sjogrens syndrome. 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 He was recently diagnosed with nonspecific pneumonia (associated with Sjogrens syndrome); put on prednisone at 60 mg daily. OBJECTIVE: Skin: Free of rash and discoloration. ENMT: Oral/pharyngeal mucosa is normal in appearance. Eyes: Sclera is white. There is no discharge from eyes. Respiratory: Normal breath sounds; no crackles or wheezes. CV: Heart is regular; no gallop or murmur. GI: Abdomen is soft and not tender. There is no palpable mass or visceromegaly. Neuro: There is no focal deficits. ADDITIONAL DATA: Hemoglobin is 8.2; 8.4 yesterday. With normal WBC/platelet count. He is normal. ASSESSMENT AND PLAN: Left femoral fracture. Underwent surgery 3 days ago. The pain is under control. To continue MS Contin with when necessary oral Percocet and/or when necessary IV Toradol. He is this lidocaine patch. Sjogrens syndrome with nonspecific pneumonia. We have to continue his prednisone at 60 mg daily. This medication will definitely make his recovery from the fracture longer/more difficult. Acute kidney injury. Likely secondary to surgery/volume depletion. Subsided. Objective sleep apnea. Continue CPAP. Morbid obesity with BMI of 43.8. For outpatient management. Disposition: Case management is working on placing this patient in an ECF. - Exam Vitals: Temp Pulse Resp BP Pulse Ox 98.4 F 96 20 148/79 95 09/24/18 23:07 09/24/18 23:07 09/24/18 23:07 09/24/18 23:07 09/24/18 23:07 Exam: xx - Assessment and Plan (1) Femoral fracture Current Visit: Yes Status: Acute (2) Sjogren's syndrome Current Visit: No Status: Chronic (3) SUSAN (acute kidney injury) Current Visit: Yes Status: Acute (4) MILENA (obstructive sleep apnea) Current Visit: No Status: Chronic (5) Morbid obesity Current Visit: No Status: Chronic - Time Spent with Patient Total time spent is greater than 50% in coordination of care (as documented) at patient's floor/unit and/or counseling patient: 25 - 35 minutes Plan of Care Discussed with: patient Internal Medicine: Result - Labs CBC & Chem 7: 09/23/18 06:49 09/23/18 06:49 - ABG Interpretation ABG results: PT/INR, D-dimer PT 11.2 Seconds (9.4-12.1) 09/19/18 08:40 Consult Discharge Plan - Plan Referrals: [facility] [Primary Care Provider] - (1) Femoral fracture Qualifiers: Encounter type: initial encounter Femur location: distal Fracture type: closed Fracture morphology: unspecified fracture morphology Laterality: left Qualified Code(s): S72.402A - Unspecified fracture of lower end of left femur, initial encounter for closed fracture (2) Sjogren's syndrome Qualifiers: Sjogren's organ involvement: unspecified organ involvement Qualified Code(s): M35.00 - Sicca syndrome, unspecified
[2018-09-25] MEDS: *HR* HYDROmorphone 4 MG TABLET PO PRN ×3 (06:55→15:43)
[2018-09-25 08:30] LABS: Basophils # 0.1 K/mcL (0.0-0.2); Basophils % 0.5 %; Eosinophils % 0.2 %; Hematocrit 27.3 % (37.5-50.1); Hemoglobin 8.5 g/dL (12.9-16.9); Immature Granulocytes % 4.8 % (0-4); Lymphocytes # 2.5 K/mcL (0.6-4.6); Lymphocytes % 27.1 %; Mean Corpuscular HGB Conc 31.1 g/dL (31.6-35.5); Mean Corpuscular Volume 83.5 fL (83.0-100.0); Mean Platelet Volume 10.2 fL (9.4-12.4); Monocytes # 0.9 K/mcL (0.0-1.3); Monocytes % 9.8 %; Neutrophils # 5.4 K/mcL (1.6-8.9); Nucleated Red Blood Cells 0.2 /100 WBC (0); Platelet Count 177 K/mcL (140-400); Red Blood Count 3.27 M/mcL (4.19-5.50); Red Cell Distribution Width 17.6 % (11.5-14.5); Segmented Neutrophils % 57.6 %
[2018-09-25 08:49] LABS: BUN/Creatinine Ratio 42 (6-26); Blood Urea Nitrogen 45 mg/dL (8-23); Carbon Dioxide 27 mEq/L (23-29); Chloride 103 mEq/L (98-107); Glucose 103 mg/dL (70-105); Osmolality,Calculated 296 (280-300); Potassium 4.6 mEq/L (3.5-5.1); Sodium 137 mEq/L (136-145); eGFR For Non-African Americans > 60 (> 60)
[2018-09-25] MEDS: Cholecalciferol (D-3) 1,000 UNIT TABLET PO SCH (09:32)
[2018-09-25] MEDS: predniSONE 20 MG TABLET PO SCH (10:20)
--- NOTE | 2018-09-25 12:33 | Discharge Summary ---
- NOTES TO OUTPATIENT PROVIDER Notes to Outpatient Provider: Patient with a history of Sjogren syndrome, chronic pain syndrome and morbid obesity, sleep apnea who was hospitalized here after a fall when he suddenly felt his left knee collapse. He was found to have a comminuted impacted and angulated distal left femur diaphyseal fracture. As such she was hospitalized here and evaluated by orthopedics who recommended surgical fixation. Patient underwent surgery on 09/20 with open reduction and internal fixation of left distal femur fracture. Since then his been recovering well. He did receive physical therapy here and has been recommended placement to skilled rehabilitation for continued recovery. Patient is now accepted to skilled rehabilitation facility and will be transferred there at discharge. Patient has been on chronic prednisone therapy due to recent diagnosis of nonspecific pneumonia associated with Sjogren syndrome. As such she was placed on 60 mg of prednisone daily as outpatient. This will be continued although it does hamper with healing of his fracture. Patient will follow-up with his chief customer officer and telegraphic typewriter repairer for further management as outpatient. We will also follow up with Dr. Riggs with orthopedics in about 2 weeks. Orders not resulted at time of discharge: Pending orders 09/20/18 XR femur LT [XR] Routine Date of Encounter: 09/25/18 Time of Encounter: 09:30 - Discharge Diagnosis (1) Femoral fracture Priority: Primary Status: Acute Qualifiers: Encounter type: initial encounter Femur location: distal Fracture type: closed Fracture morphology: unspecified fracture morphology Laterality: left Qualified Code(s): S72.402A - Unspecified fracture of lower end of left femur, initial encounter for closed fracture (2) MILENA (obstructive sleep apnea) Priority: Secondary Status: Chronic (3) Morbid obesity Priority: Secondary Status: Chronic (4) Sjogren's syndrome Priority: Secondary Status: Chronic Qualifiers: Sjogren's organ involvement: unspecified organ involvement Qualified Code(s): M35.00 - Sicca syndrome, unspecified (5) SUSAN (acute kidney injury) Priority: Secondary Status: Resolved Hospital course: Mr. Zuniga is a 63 year old male Patient with a history of Sjogren syndrome, chronic pain syndrome and morbid obesity, sleep apnea who was hospitalized here after a fall when he suddenly felt his left knee collapse. He was found to have a comminuted impacted and angulated distal left femur diaphyseal fracture. As such she was hospitalized here and evaluated by orthopedics who recommended surgical fixation. Patient underwent surgery on 09/20 with open reduction and internal fixation of left distal femur fracture. Since then his been recovering well. He did receive physical therapy here and has been recommended placement to skilled rehabilitation for continued recovery. Patient is now accepted to skilled rehabilitation facility and will be transferred there at discharge. Patient has been on chronic prednisone therapy due to recent diagnosis of nonspecific pneumonia associated with Sjogren syndrome. As such she was placed on 60 mg of prednisone daily as outpatient. This will be continued although it does hamper with healing of his fracture. Patient will follow-up with his chief customer officer and telegraphic typewriter repairer for further management as outpatient. We will also follow up with Dr. Riggs with orthopedics in about 2 weeks. Discharge discussed with: patient, nurse - Time Spent with Patient Total time spent providing and/or coordinating discharge services: Time spent: Greater than 30 minutes (45 min) - Discharge Medications Prescriptions: New Enoxaparin [Lovenox] 40 mg SQ DAILY #7 syr Continue Sildenafil Citrate [Viagra] 100 mg PO DAILY PRN PRN Reason: Erectile Dysfunction Sennosides [Senokot] 8.6 mg PO DAILY PRN PRN Reason: Constipation Memantine HCl 10 mg PO BID Meloxicam [Mobic] 7.5 mg PO BID Lidocaine Patch [Lidoderm 5% patch] 1 patch TP DAILY PRN PRN Reason: FEET PAIN Ferrous Sulfate [Iron] 325 mg PO DAILY Cholecalciferol (D-3) [Vitamin D] 3,000 unit PO DAILY PredniSONE [Deltasone] 60 mg PO DAILY Sulfamethoxazole/Trimeth DS [Bactrim Ds] 1 tab PO MOWEFR Trazodone HCl 150 mg PO HS PRN PRN Reason: Sleep Tamsulosin HCl [Flomax] 0.4 mg PO DAILY Morphine Sulfate [Arymo ER] 30 mg PO BID 5 Days #10 tab.po.er OxyCODONE/APAP 10/325 [Percocet 10/325 MG] 1 tab PO 5XD PRN 5 Days #20 tablet PRN Reason: Moderate Pain Home Medications: Cholecalciferol (D-3) [Vitamin D] 3,000 unit PO DAILY 11/23/17 [History] Ferrous Sulfate [Iron] 325 mg PO DAILY 11/23/17 [History] Lidocaine Patch [Lidoderm 5% patch] 1 patch TP DAILY PRN 11/23/17 [History] Meloxicam [Mobic] 7.5 mg PO BID 11/23/17 [History] Memantine HCl 10 mg PO BID 11/23/17 [History] Sennosides [Senokot] 8.6 mg PO DAILY PRN 11/23/17 [History] Sildenafil Citrate [Viagra] 100 mg PO DAILY PRN 11/23/17 [History] PredniSONE [Deltasone] 60 mg PO DAILY 09/19/18 [History] Sulfamethoxazole/Trimeth DS [Bactrim Ds] 1 tab PO MOWEFR 09/19/18 [History] Tamsulosin HCl [Flomax] 0.4 mg PO DAILY 09/19/18 [History] Trazodone HCl 150 mg PO HS PRN 09/19/18 [History] Enoxaparin [Lovenox] 40 mg SQ DAILY #7 syr 09/25/18 [Rx] Morphine Sulfate [Arymo ER] 30 mg PO BID 5 Days #10 tab.po.er 09/25/18 [Rx] OxyCODONE/APAP 10/325 [Percocet 10/325 MG] 1 tab PO 5XD PRN 5 Days #20 tablet 09/25/18 [Rx] Allergies/Adverse Reactions: Allergy/AdvReac Type Severity Reaction Status Date / Time codeine AdvReac Swelling Verified 08/17/17 10:33 of Lip/Tongue/Throat Date of admission: 09/19/18 14:41 [facility] care physician: [facility] Consults: 09/19/18 08:44 Consult to Orthopedic Surgery [CONS] Stat Consulting Provider: Scottie Riggs Reason for Consult: femoral fracture Call Completed: Yes 09/20/18 22:55 Consult to Occupational Therapy [CONS] Routine Comment: Evaluate, develop and implement POC Reason for Consult: adl Does patient have active BEDREST order?: No Is patient medically & hemodynamically stable?: Yes Consult to Physical Therapy [CONS] Routine Comment: Evaluate, develop and implement POC Reason for Consult: femur fx Does patient have active BEDREST order?: No Is patient medically & hemodynamically stable?: Yes Consult to Compliance Administrator [CONS] Routine Reason for SW Consult: dc Discharging clinician: Shayla Wilson Anticipated date of discharge: 09/25/18 - Constitutional Vitals: Temp Pulse Resp BP Pulse Ox 98.2 F 87 18 134/72 96 09/25/18 06:50 09/25/18 06:50 09/25/18 06:50 09/25/18 06:50 09/25/18 06:50 General appearance: Present: cooperative, mild distress, A&O X 3, obese, answers questions appropriately Exam: . - Respiratory Respiratory exam: Present: CTAB. Absent: accessory muscle use, rales, rhonchi, wheezes - Cardiovascular Cardiovascular exam: Present: RRR, +S1, +S2. Absent: diastolic murmur, gallop, rubs, systolic murmur - GI/Abdominal GI/Abdominal exam: Present: normal bowel sounds, soft, no peritoneal signs. Absent: distended, tenderness - Extremities Exam Additional comments: Left lower extremity pain and tenderness around the knee joint - Patient Status Disposition: Transfer SNF Condition: Fair Functional capacity at discharge: wheelchair bound Overall status at discharge: patient is progressing back to baseline - Discharge Instructions Follow Up With: [facility] [Primary Care Provider] - (In 1-2 weeks) Scottie Riggs DO [Non-Partnered Physician] - (in 1-2 weeks) Additional Instructions: He is strict nonweightbearing on left lower extremity. Daily dressing care with Neosporin and a sterile dressing. - Diet and Activity Activity: as per physical therapy Diet: advance to your usual diet, low fat, low cholesterol, low salt diet
--- NOTE | 2018-09-25 12:42 | Physician Discharge Referral ---
ExtendedCare Referral Info Transfer To: [facility] Provider in Charge after Transfer: PCP Institutional Level of Care: Skilled - Diagnosis (1) Femoral fracture Priority: Primary Status: Acute (2) MILENA (obstructive sleep apnea) Priority: Secondary Status: Chronic (3) Morbid obesity Priority: Secondary Status: Chronic (4) Sjogren's syndrome Priority: Secondary Status: Chronic (5) SUSAN (acute kidney injury) Priority: Secondary Status: Resolved Prognosis: Fair Aware of Diagnosis: Patient Aware of Prognosis: Patient - Transfer Medications Prescriptions: Enoxaparin [Lovenox] 40 mg SQ DAILY #7 syr Morphine Sulfate [Arymo ER] 30 mg PO BID 5 Days #10 tab.po.er OxyCODONE/APAP 10/325 [Percocet 10/325 MG] 1 tab PO 5XD PRN 5 Days #20 tablet PRN Reason: Moderate Pain Home Medications: Cholecalciferol (D-3) [Vitamin D] 3,000 unit PO DAILY 11/23/17 [History] Ferrous Sulfate [Iron] 325 mg PO DAILY 11/23/17 [History] Lidocaine Patch [Lidoderm 5% patch] 1 patch TP DAILY PRN 11/23/17 [History] Meloxicam [Mobic] 7.5 mg PO BID 11/23/17 [History] Memantine HCl 10 mg PO BID 11/23/17 [History] Sennosides [Senokot] 8.6 mg PO DAILY PRN 11/23/17 [History] Sildenafil Citrate [Viagra] 100 mg PO DAILY PRN 11/23/17 [History] PredniSONE [Deltasone] 60 mg PO DAILY 09/19/18 [History] Sulfamethoxazole/Trimeth DS [Bactrim Ds] 1 tab PO MOWEFR 09/19/18 [History] Tamsulosin HCl [Flomax] 0.4 mg PO DAILY 09/19/18 [History] Trazodone HCl 150 mg PO HS PRN 09/19/18 [History] Enoxaparin [Lovenox] 40 mg SQ DAILY #7 syr 09/25/18 [Rx] Morphine Sulfate [Arymo ER] 30 mg PO BID 5 Days #10 tab.po.er 09/25/18 [Rx] OxyCODONE/APAP 10/325 [Percocet 10/325 MG] 1 tab PO 5XD PRN 5 Days #20 tablet 09/25/18 [Rx] Allergies/Adverse Reactions: Allergy/AdvReac Type Severity Reaction Status Date / Time codeine AdvReac Swelling Verified 08/17/17 10:33 of Lip/Tongue/Throat - Respiratory Orders Smoking Cessation: Smoking cessation has been advised. For more information, call the [place] Tobacco Quit Line at 5-490-UIHL-NOW. - Advance Directives Code Status: Full Code - Rehabiliation Orders Rehab Potential: Fair Rehab Orders: Evaluation for Physical Therapy, Evaluation for Occupational Therapy - Treatments Skin tear care topically daily PRN per policy - Diet Orders Cardiac CERTIFICATION: I certify that the transfer of the above named patient to an Extended Care Facility is necessary for the continuing treatment of the diagnosis listed. The above information is true and accurate reflection of patient's current condition. Confidential - Redisclosure prohibited without a patient's written consent.
[2018-09-25 15:41] VITALS: BP 119/76
== END 2018-09-25 15:48 | DRG 480 ==
LOC: EMEROOARM 07:34 → 3NENU 07:34 → SUATTDRO 14:41
PROVIDERS: ADMIT Hospitalist; ATTEND Internal Medicine

== ENCOUNTER 2020-05-16 18:26 | Inpatient (IN) ==
[2020-05-16] MEDS ORDERED: Piperacillin/Tazobactam 3.375 GM in 0.9 % Sodium Chloride Mini Bag 100 ML IVPB ONE (18:38)
[2020-05-16] MEDS ORDERED: Vancomycin 2,000 MG/520 ML IV.SOLN IVPB ONE (18:46)
[2020-05-16] MEDS ORDERED: Naloxone 0.4 MG/ML INJ IVP PRN (19:19)
[2020-05-16] MEDS ORDERED: Acetaminophen 325 MG TABLET PO PRN (19:19)
[2020-05-16] MEDS ORDERED: Dextrose Gel 15 GM/37.5 ML TUBE PO PRN ×2 (21:52)
[2020-05-16] MEDS ORDERED: *HR* Dextrose 50 % in Water (Vial) 50 ML VIAL IVP PRN (21:52)
[2020-05-16] MEDS ORDERED: D5% in Water 1,000 ML IVC PRN (21:52)
[2020-05-16] MEDS ORDERED: traZODone 50 MG TABLET PO PRN (22:09)
[2020-05-16] MEDS ORDERED: Perflutren Lipid Microsphere 1.3 ML in 0.9 % Sodium Chloride 8.7 ML IVP PRN (22:13)
[2020-05-16 22:57] LABS: Estimated Average Glucose 134 mg/dl; Hemoglobin A1C 6.3 %
[2020-05-16] MEDS: Insulin LISPRO 300 UNITS/3 ML VIAL SQ SCH (23:35)
[2020-05-17] MEDS: Piperacillin/Tazobactam 3.375 GM in 0.9 % Sodium Chloride Mini Bag 100 ML IVPB SCH ×3 (02:32→20:00)
[2020-05-17 04:26] LABS: Hematocrit 23.1 % (37.5-50.1); Mean Corpuscular Volume 95.1 fL (83.0-100.0); Red Blood Count 2.43 M/mcL (4.19-5.50)
[2020-05-17 04:27] LABS: Basophils % 0.2 %; Eosinophils # 0.2 K/mcL (0.0-0.6); Eosinophils % 3.3 %; Hemoglobin 7.1 g/dL (12.9-16.9); Immature Granulocytes % 0.4 % (0-4); Immature Platelets 1.1 % (1.1-6.1); Lymphocytes # 1.4 K/mcL (0.6-4.6); Lymphocytes % 27.8 %; Mean Corpuscular HGB Conc 30.7 g/dL (31.6-35.5); Mean Corpuscular Hemoglobin 29.2 pg (28.0-33.3); Mean Platelet Volume 9.6 fL (9.4-12.4); Monocytes # 3.1 K/mcL (0.0-1.3); Monocytes % 60.7 %; Neutrophils # 0.4 K/mcL (1.6-8.9); Red Cell Distribution Width 22.1 % (11.5-14.5); Segmented Neutrophils % 7.6 %; White Blood Count 5.1 K/mcL (4.3-11.1)
[2020-05-17 04:32] LABS: INR 1.4; Prothrombin Time 15.5 Seconds (9.4-12.1)
[2020-05-17 04:40] LABS: Calcium 8.3 mg/dL (8.6-10.3); Magnesium 1.9 mg/dL (1.6-2.6); Potassium 3.8 mEq/L (3.5-5.1)
[2020-05-17 04:50] LABS: Platelet Count 99 K/mcL (140-400)
[2020-05-17 04:52] LABS: Platelet Estimate Slight Decrease (Normal)
[2020-05-17] MEDS ORDERED: Vancomycin 1,750 MG/517.5 ML IV.SOLN IVPB SCH (07:00)
[2020-05-17] MEDS: Insulin LISPRO 300 UNITS/3 ML VIAL SQ SCH ×3 (07:37→19:52)
[2020-05-17] MEDS: hydrOXYzine pamoate 25 MG CAPSULE PO SCH ×2 (07:47→15:39)
[2020-05-17] MEDS: predniSONE 10 MG TABLET PO SCH (07:47)
[2020-05-17] MEDS: PrednisoLONE Acetate 1% Opth 5 ML BOTTLE LEFT EYE SCH ×4 (07:52→21:35)
[2020-05-17] MEDS: Ofloxacin OPTH Drops 5 ML BOTTLE LEFT EYE SCH ×4 (07:53→21:35)
[2020-05-17 16:31] LABS: Hemoglobin 7.1 g/dL (12.9-16.9)
[2020-05-17 16:44] LABS: % Iron Saturation 20 % (20-55); Iron 49 mcg/dL (65-175); Transferrin 174 mg/dL (203-362)
[2020-05-17 17:02] LABS: Ferritin 116 ng/mL (20-250)
[2020-05-17] MEDS: *HR* OxyCODONE Immed Rel 15 MG TABLET PO PRN (20:02)
[2020-05-17] MEDS: Morphine Sulfate ER (12 HR) 30 MG TABLET.ER PO SCH (21:36)
[2020-05-17] MEDS: Budesonide/Formoterol 160/4.5 1 PUFF INH IH SCH (22:55)
[2020-05-18] MEDS: Piperacillin/Tazobactam 3.375 GM in 0.9 % Sodium Chloride Mini Bag 100 ML IVPB SCH ×3 (01:37→18:01)
[2020-05-18 02:52] LABS: Immature Granulocytes % 0.3 % (0-4); Red Cell Distribution Width 22.1 % (11.5-14.5); Segmented Neutrophils % 11.6 %
[2020-05-18 02:54] LABS: Eosinophils # 0.1 K/mcL (0.0-0.6); Eosinophils % 1.8 %; Hematocrit 21.5 % (37.5-50.1); Hemoglobin 6.7 g/dL (12.9-16.9); Immature Platelets 1.5 % (1.1-6.1); Lymphocytes # 1.1 K/mcL (0.6-4.6); Lymphocytes % 32.1 %; Mean Corpuscular HGB Conc 31.2 g/dL (31.6-35.5); Mean Corpuscular Volume 93.1 fL (83.0-100.0); Mean Platelet Volume 9.9 fL (9.4-12.4); Monocytes # 1.8 K/mcL (0.0-1.3); Monocytes % 54.2 %; Neutrophils # 0.4 K/mcL (1.6-8.9); Nucleated Red Blood Cells 0.9 /100 WBC (0); Red Blood Count 2.31 M/mcL (4.19-5.50); White Blood Count 3.3 K/mcL (4.3-11.1)
[2020-05-18 02:55] LABS: Platelet Count 84 K/mcL (140-400)
[2020-05-18 03:12] LABS: BUN/Creatinine Ratio 21 (6-26); Blood Urea Nitrogen 28 mg/dL (8-23); Carbon Dioxide 20 mEq/L (23-29); Chloride 107 mEq/L (98-107); Glucose 111 mg/dL (70-105); Osmolality,Calculated 284 (280-300); Potassium 4.2 mEq/L (3.5-5.1); Sodium 134 mEq/L (136-145); eGFR For African Americans > 60 (> 60); eGFR For Non-African Americans 53 (> 60)
[2020-05-18 03:14] LABS: Anisocytosis 1+ (Not Present); Microcytosis Present (Not Present); Platelet Estimate Decreased (Normal); Poikilocytosis 1+ (Not Present)
[2020-05-18] MEDS ORDERED: 0.9 % Sodium Chloride 250 ML ONE (05:18)
[2020-05-18] MEDS: Insulin LISPRO 300 UNITS/3 ML VIAL SQ SCH ×3 (07:33→18:04)
[2020-05-18] MEDS: Vancomycin 2,000 MG/520 ML IV.SOLN IVPB SCH (07:53)
[2020-05-18] MEDS: predniSONE 10 MG TABLET PO SCH (07:54)
[2020-05-18] MEDS: Folic Acid 1 MG TABLET PO SCH (07:54)
[2020-05-18] MEDS: Morphine Sulfate ER (12 HR) 30 MG TABLET.ER PO SCH ×3 (07:54→20:17)
[2020-05-18] MEDS: Cholecalciferol (D-3) 1,000 UNIT (25MCG) TABLET PO SCH (07:54)
[2020-05-18] MEDS: Budesonide/Formoterol 160/4.5 1 PUFF INH IH SCH ×2 (08:02→20:18)
[2020-05-18] MEDS: PrednisoLONE Acetate 1% Opth 5 ML BOTTLE LEFT EYE SCH ×4 (08:04→20:18)
[2020-05-18] MEDS: Ofloxacin OPTH Drops 5 ML BOTTLE LEFT EYE SCH ×4 (08:04→20:19)
[2020-05-18 10:50] LABS: Eosinophils # 0.1 K/mcL (0.0-0.6); Hemoglobin 7.4 g/dL (12.9-16.9); Mean Corpuscular HGB Conc 32.2 g/dL (31.6-35.5); Mean Corpuscular Hemoglobin 30.1 pg (28.0-33.3); Mean Corpuscular Volume 93.5 fL (83.0-100.0); Mean Platelet Volume 10.6 fL (9.4-12.4); Red Blood Count 2.46 M/mcL (4.19-5.50); Red Cell Distribution Width 21.2 % (11.5-14.5); White Blood Count 3.7 K/mcL (4.3-11.1)
[2020-05-18 10:51] LABS: Platelet Count 91 K/mcL (140-400)
[2020-05-18 11:51] LABS: Lymphocytes # 1.8 K/mcL (0.6-4.6); Monocytes # 1.6 K/mcL (0.0-1.3); Neutrophils # 0.3 K/mcL (1.6-8.9); Reactive Lymphocytes Present (Not Present)
[2020-05-18 11:52] LABS: Anisocytosis 2+ (Not Present); Platelet Estimate Decreased (Normal); Poikilocytosis 1+ (Not Present)
[2020-05-18 18:06] LABS: Hematocrit 27.6 % (37.5-50.1); Hemoglobin 8.6 g/dL (12.9-16.9)
[2020-05-18] MEDS: *HR* OxyCODONE Immed Rel 15 MG TABLET PO PRN (20:17)
[2020-05-19] MEDS: Piperacillin/Tazobactam 3.375 GM in 0.9 % Sodium Chloride Mini Bag 100 ML IVPB SCH ×3 (03:38→17:20)
[2020-05-19 06:54] LABS: Eosinophils # 0.1 K/mcL (0.0-0.6); Hematocrit 24.6 % (37.5-50.1); Hemoglobin 7.7 g/dL (12.9-16.9); Immature Granulocytes % 0.2 % (0-4); Lymphocytes # 1.5 K/mcL (0.6-4.6); Lymphocytes % 33.9 %; Mean Corpuscular HGB Conc 31.3 g/dL (31.6-35.5); Mean Corpuscular Hemoglobin 28.8 pg (28.0-33.3); Mean Corpuscular Volume 92.1 fL (83.0-100.0); Mean Platelet Volume 10.1 fL (9.4-12.4); Monocytes # 2.4 K/mcL (0.0-1.3); Monocytes % 55.2 %; Neutrophils # 0.4 K/mcL (1.6-8.9); Red Blood Count 2.67 M/mcL (4.19-5.50); Red Cell Distribution Width 21.2 % (11.5-14.5); Segmented Neutrophils % 8.7 %; White Blood Count 4.4 K/mcL (4.3-11.1)
[2020-05-19 06:56] LABS: Platelet Count 82 K/mcL (140-400)
[2020-05-19 07:34] LABS: BUN/Creatinine Ratio 18 (6-26); Blood Urea Nitrogen 20 mg/dL (8-23); Calcium 8.6 mg/dL (8.6-10.3); Carbon Dioxide 20 mEq/L (23-29); Chloride 106 mEq/L (98-107); Glucose 115 mg/dL (70-105); Osmolality,Calculated 284 (280-300); Potassium 3.9 mEq/L (3.5-5.1); Sodium 135 mEq/L (136-145); eGFR For African Americans > 60 (> 60); eGFR For Non-African Americans > 60 (> 60)
[2020-05-19] MEDS: Budesonide/Formoterol 160/4.5 1 PUFF INH IH SCH ×2 (08:49→21:00)
[2020-05-19] MEDS: Cholecalciferol (D-3) 1,000 UNIT (25MCG) TABLET PO SCH (09:53)
[2020-05-19] MEDS: Folic Acid 1 MG TABLET PO SCH (09:54)
[2020-05-19] MEDS: predniSONE 10 MG TABLET PO SCH (09:54)
[2020-05-19] MEDS: Morphine Sulfate ER (12 HR) 30 MG TABLET.ER PO SCH ×3 (09:54→21:21)
[2020-05-19] MEDS: Vancomycin 2,000 MG/520 ML IV.SOLN IVPB SCH (09:56)
[2020-05-19] MEDS: Insulin LISPRO 300 UNITS/3 ML VIAL SQ SCH ×3 (09:57→17:12)
[2020-05-19] MEDS: Ofloxacin OPTH Drops 5 ML BOTTLE LEFT EYE SCH ×4 (14:01→21:21)
[2020-05-19] MEDS: PrednisoLONE Acetate 1% Opth 5 ML BOTTLE LEFT EYE SCH ×4 (14:01→21:21)
[2020-05-19] MEDS: *HR* OxyCODONE Immed Rel 15 MG TABLET PO PRN (17:30)
[2020-05-19] MEDS: Ondansetron ODT 4 MG TAB.RAPDIS SL PRN (20:45)
[2020-05-20] MEDS: Piperacillin/Tazobactam 3.375 GM in 0.9 % Sodium Chloride Mini Bag 100 ML IVPB SCH ×2 (02:53→09:08)
[2020-05-20] MEDS: Vancomycin 2,000 MG/520 ML IV.SOLN IVPB SCH (06:37)
[2020-05-20 07:15] LABS: Red Cell Distribution Width 20.8 % (11.5-14.5)
[2020-05-20 07:17] LABS: Hematocrit 24.7 % (37.5-50.1); Hemoglobin 7.6 g/dL (12.9-16.9); Immature Platelets 1.4 % (1.1-6.1); Mean Corpuscular HGB Conc 30.8 g/dL (31.6-35.5); Mean Corpuscular Hemoglobin 28.9 pg (28.0-33.3); Mean Corpuscular Volume 93.9 fL (83.0-100.0); Mean Platelet Volume 9.8 fL (9.4-12.4); Red Blood Count 2.63 M/mcL (4.19-5.50); White Blood Count 4.9 K/mcL (4.3-11.1)
[2020-05-20 07:18] LABS: Platelet Count 70 K/mcL (140-400)
[2020-05-20 07:33] LABS: BUN/Creatinine Ratio 18 (6-26); Blood Urea Nitrogen 24 mg/dL (8-23); Calcium 8.4 mg/dL (8.6-10.3); Carbon Dioxide 22 mEq/L (23-29); Chloride 104 mEq/L (98-107); Glucose 106 mg/dL (70-105); Osmolality,Calculated 280 (280-300); Potassium 4.4 mEq/L (3.5-5.1); Sodium 133 mEq/L (136-145); eGFR For African Americans > 60 (> 60); eGFR For Non-African Americans 55 (> 60)
[2020-05-20] MEDS: Budesonide/Formoterol 160/4.5 1 PUFF INH IH SCH ×2 (07:45→22:43)
[2020-05-20 08:11] LABS: Lymphocytes # 1.4 K/mcL (0.6-4.6); Monocytes # 2.7 K/mcL (0.0-1.3); Neutrophils # 0.8 K/mcL (1.6-8.9); Platelet Estimate Decreased (Normal)
[2020-05-20 08:12] LABS: Anisocytosis 2+ (Not Present); Poikilocytosis 1+ (Not Present)
[2020-05-20 08:13] LABS: Microcytosis Present (Not Present)
[2020-05-20] MEDS: Insulin LISPRO 300 UNITS/3 ML VIAL SQ SCH ×3 (09:02→21:12)
[2020-05-20] MEDS: Cholecalciferol (D-3) 1,000 UNIT (25MCG) TABLET PO SCH (09:04)
[2020-05-20] MEDS: Folic Acid 1 MG TABLET PO SCH (09:06)
[2020-05-20] MEDS: predniSONE 10 MG TABLET PO SCH (09:06)
[2020-05-20] MEDS: Morphine Sulfate ER (12 HR) 30 MG TABLET.ER PO SCH ×3 (09:06→21:17)
[2020-05-20] MEDS: PrednisoLONE Acetate 1% Opth 5 ML BOTTLE LEFT EYE SCH ×4 (09:20→21:23)
[2020-05-20] MEDS: Ofloxacin OPTH Drops 5 ML BOTTLE LEFT EYE SCH ×4 (09:20→21:23)
[2020-05-20] MEDS ORDERED: Isovue-300 200 mL Infus..BTL ONE ×4 (13:01→14:29)
[2020-05-20] MEDS ORDERED: 0.9 % Sodium Chloride 1,000 ML ONE (13:01)
[2020-05-20] MEDS ORDERED: *HR* Heparin 10,000 UNIT/10 ML VIAL ONE (13:01)
[2020-05-20] MEDS ORDERED: *HR* Midazolam HCl 2 MG/2 ML VIAL ONE (13:27)
[2020-05-20] MEDS ORDERED: *HR* FentaNYL (PF) 100 MCG/2 ML VIAL ONE ×2 (13:27→14:50)
[2020-05-20] MEDS ORDERED: *HR* Metoprolol 5 MG/5 ML VIAL IVP ONE ×2 (14:14→14:53)
[2020-05-20] MEDS ORDERED: Heparin 1,000 UNITS/500 mL 500 ML ONE (14:29)
[2020-05-21 01:15] LABS: Hemoglobin 6.7 g/dL (12.9-16.9); Immature Granulocytes % 0.5 % (0-4)
[2020-05-21 01:18] LABS: Basophils % 0.2 %; Hematocrit 22.4 % (37.5-50.1); Immature Platelets 1.5 % (1.1-6.1); Lymphocytes # 1.4 K/mcL (0.6-4.6); Lymphocytes % 32.5 %; Mean Corpuscular HGB Conc 29.9 g/dL (31.6-35.5); Mean Corpuscular Hemoglobin 29.1 pg (28.0-33.3); Mean Corpuscular Volume 97.4 fL (83.0-100.0); Mean Platelet Volume 9.1 fL (9.4-12.4); Monocytes # 2.3 K/mcL (0.0-1.3); Monocytes % 55.8 %; Neutrophils # 0.4 K/mcL (1.6-8.9); Red Cell Distribution Width 20.6 % (11.5-14.5); White Blood Count 4.2 K/mcL (4.3-11.1)
[2020-05-21 01:25] LABS: INR 1.3; Prothrombin Time 15.3 Seconds (9.4-12.1)
[2020-05-21 01:27] LABS: Platelet Count 65 K/mcL (140-400)
[2020-05-21 01:29] LABS: BUN/Creatinine Ratio 19 (6-26); Blood Urea Nitrogen 24 mg/dL (8-23); Calcium 8.2 mg/dL (8.6-10.3); Carbon Dioxide 19 mEq/L (23-29); Chloride 104 mEq/L (98-107); Glucose 93 mg/dL (70-105); Magnesium 1.6 mg/dL (1.6-2.6); Osmolality,Calculated 276 (280-300); Potassium 4.5 mEq/L (3.5-5.1); Sodium 131 mEq/L (136-145); eGFR For African Americans > 60 (> 60); eGFR For Non-African Americans 57 (> 60)
[2020-05-21 01:51] LABS: Anisocytosis 1+ (Not Present); Ovalocytes 1+ (Not Present)
[2020-05-21 01:52] LABS: Hypochromasia Present (Not Present); Platelet Estimate Decreased (Normal); Poikilocytosis 1+ (Not Present)
[2020-05-21] MEDS: *HR* OxyCODONE Immed Rel 15 MG TABLET PO PRN (02:44)
[2020-05-21] MEDS ORDERED: 0.9 % Sodium Chloride 250 ML IVC SCH (03:00)
[2020-05-21] MEDS: Insulin LISPRO 300 UNITS/3 ML VIAL SQ SCH ×3 (07:21→16:29)
[2020-05-21] MEDS: Cholecalciferol (D-3) 1,000 UNIT (25MCG) TABLET PO SCH (08:35)
[2020-05-21] MEDS: Morphine Sulfate ER (12 HR) 30 MG TABLET.ER PO SCH ×4 (08:35→18:14)
[2020-05-21] MEDS: Folic Acid 1 MG TABLET PO SCH (08:35)
[2020-05-21] MEDS: predniSONE 10 MG TABLET PO SCH (08:36)
[2020-05-21] MEDS: PrednisoLONE Acetate 1% Opth 5 ML BOTTLE LEFT EYE SCH ×4 (08:38→21:20)
[2020-05-21] MEDS: Ofloxacin OPTH Drops 5 ML BOTTLE LEFT EYE SCH ×4 (08:39→21:20)
[2020-05-21] MEDS: Budesonide/Formoterol 160/4.5 1 PUFF INH IH SCH ×2 (10:56→20:31)
[2020-05-21 16:09] LABS: Hematocrit 25.5 % (37.5-50.1)
[2020-05-21] MEDS: Ondansetron ODT 4 MG TAB.RAPDIS SL PRN (18:02)
[2020-05-21] MEDS ORDERED: *HR* Promethazine 25 MG/ML VIAL IM PRN (20:24)
[2020-05-22] MEDS: Morphine Sulfate ER (12 HR) 30 MG TABLET.ER PO SCH ×4 (01:09→20:12)
[2020-05-22] MEDS ORDERED: Metoclopramide 10 MG/2 ML VIAL IVP PRN (05:08)
[2020-05-22 05:46] LABS: BUN/Creatinine Ratio 22 (6-26); Blood Urea Nitrogen 20 mg/dL (8-23); Calcium 8.9 mg/dL (8.6-10.3); Carbon Dioxide 24 mEq/L (23-29); Chloride 101 mEq/L (98-107); Glucose 133 mg/dL (70-105); Osmolality,Calculated 281 (280-300); Potassium 3.8 mEq/L (3.5-5.1); Sodium 133 mEq/L (136-145); eGFR For African Americans > 60 (> 60); eGFR For Non-African Americans > 60 (> 60)
[2020-05-22] MEDS: Folic Acid 1 MG TABLET PO SCH (08:08)
[2020-05-22] MEDS: Cholecalciferol (D-3) 1,000 UNIT (25MCG) TABLET PO SCH (08:09)
[2020-05-22] MEDS: Insulin LISPRO 300 UNITS/3 ML VIAL SQ SCH ×4 (08:09→21:00)
[2020-05-22] MEDS: predniSONE 10 MG TABLET PO SCH (08:09)
[2020-05-22] MEDS: Ofloxacin OPTH Drops 5 ML BOTTLE LEFT EYE SCH ×4 (08:14→20:15)
[2020-05-22] MEDS: PrednisoLONE Acetate 1% Opth 5 ML BOTTLE LEFT EYE SCH ×4 (08:14→20:14)
[2020-05-22] MEDS: Budesonide/Formoterol 160/4.5 1 PUFF INH IH SCH ×2 (08:20→21:21)
[2020-05-22] MEDS ORDERED: Pantoprazole 40 MG VIAL IVP SCH (09:08)
[2020-05-22] MEDS: Ondansetron ODT 4 MG TAB.RAPDIS SL PRN (09:53)
[2020-05-22 12:53] LABS: Hemoglobin 8.5 g/dL (12.9-16.9); Mean Corpuscular HGB Conc 32.7 g/dL (31.6-35.5); Mean Corpuscular Hemoglobin 29.3 pg (28.0-33.3); Mean Corpuscular Volume 89.7 fL (83.0-100.0); Mean Platelet Volume 9.4 fL (9.4-12.4); Red Cell Distribution Width 19.3 % (11.5-14.5); White Blood Count 3.3 K/mcL (4.3-11.1)
[2020-05-22 12:55] LABS: Platelet Count 51 K/mcL (140-400)
[2020-05-22] MEDS ORDERED: Lidocaine -MPF 2% 2 ML VIAL ONE (13:16)
[2020-05-22] MEDS ORDERED: *HR* Succinylcholine 200 MG/10 ML VIAL IVP ONE (13:31)
[2020-05-22] MEDS ORDERED: Ondansetron 4 MG/2 ML VIAL ONE (13:54)
[2020-05-22 14:30] LABS: Platelet Estimate Decreased (Normal)
[2020-05-22 14:34] LABS: Anisocytosis 1+ (Not Present); Lymphocytes # 1.3 K/mcL (0.6-4.6); Monocytes # 1.6 K/mcL (0.0-1.3); Neutrophils # 0.5 K/mcL (1.6-8.9)
[2020-05-22] MEDS: Metoclopramide 10 MG/2 ML VIAL IVP SCH (17:24)
[2020-05-22 21:18] LABS: Hematocrit 24.3 % (37.5-50.1); Hemoglobin 7.8 g/dL (12.9-16.9)
[2020-05-23 03:57] LABS: BUN/Creatinine Ratio 19 (6-26); Blood Urea Nitrogen 18 mg/dL (8-23); Calcium 8.4 mg/dL (8.6-10.3); Carbon Dioxide 27 mEq/L (23-29); Chloride 99 mEq/L (98-107); Glucose 95 mg/dL (70-105); Hemoglobin 7.7 g/dL (12.9-16.9); Mean Corpuscular Volume 91.4 fL (83.0-100.0); Osmolality,Calculated 276 (280-300); Potassium 3.4 mEq/L (3.5-5.1); Sodium 132 mEq/L (136-145); eGFR For African Americans > 60 (> 60); eGFR For Non-African Americans > 60 (> 60)
[2020-05-23 03:59] LABS: Basophils % 0.3 %; Hematocrit 24.3 % (37.5-50.1); Immature Granulocytes % 0.6 % (0-4); Immature Platelets 1.7 % (1.1-6.1); Lymphocytes # 0.9 K/mcL (0.6-4.6); Lymphocytes % 30.2 %; Mean Corpuscular HGB Conc 31.7 g/dL (31.6-35.5); Mean Corpuscular Hemoglobin 28.9 pg (28.0-33.3); Mean Platelet Volume 9.3 fL (9.4-12.4); Monocytes # 1.8 K/mcL (0.0-1.3); Monocytes % 59.2 %; Neutrophils # 0.3 K/mcL (1.6-8.9); Red Blood Count 2.66 M/mcL (4.19-5.50); Red Cell Distribution Width 19.4 % (11.5-14.5); Segmented Neutrophils % 8.7 %; White Blood Count 3.1 K/mcL (4.3-11.1)
[2020-05-23 04:24] LABS: Platelet Count 50 K/mcL (140-400)
[2020-05-23] MEDS: Insulin LISPRO 300 UNITS/3 ML VIAL SQ SCH ×4 (07:40→22:05)
[2020-05-23] MEDS: Metoclopramide 10 MG/2 ML VIAL IVP SCH ×4 (07:52→15:57)
[2020-05-23] MEDS: Folic Acid 1 MG TABLET PO SCH (07:53)
[2020-05-23] MEDS: Morphine Sulfate ER (12 HR) 30 MG TABLET.ER PO SCH ×3 (07:53→22:04)
[2020-05-23] MEDS: predniSONE 10 MG TABLET PO SCH (07:53)
[2020-05-23] MEDS: Cholecalciferol (D-3) 1,000 UNIT (25MCG) TABLET PO SCH (07:53)
[2020-05-23] MEDS: Budesonide/Formoterol 160/4.5 1 PUFF INH IH SCH ×2 (08:34→20:38)
[2020-05-23] MEDS: PrednisoLONE Acetate 1% Opth 5 ML BOTTLE LEFT EYE SCH ×4 (10:20→22:05)
[2020-05-23] MEDS: Ofloxacin OPTH Drops 5 ML BOTTLE LEFT EYE SCH ×4 (10:20→22:06)
[2020-05-23] MEDS: *HR* OxyCODONE Immed Rel 15 MG TABLET PO PRN (13:18)
[2020-05-24 02:01] LABS: Hemoglobin 7.8 g/dL (12.9-16.9); Mean Corpuscular Volume 90.9 fL (83.0-100.0); Red Cell Distribution Width 18.7 % (11.5-14.5)
[2020-05-24 02:03] LABS: Eosinophils % 0.7 %; Hematocrit 24.1 % (37.5-50.1); Immature Granulocytes % 0.7 % (0-4); Immature Platelets 1.3 % (1.1-6.1); Lymphocytes % 33.6 %; Mean Corpuscular HGB Conc 32.4 g/dL (31.6-35.5); Mean Corpuscular Hemoglobin 29.4 pg (28.0-33.3); Mean Platelet Volume 8.9 fL (9.4-12.4); Monocytes # 1.6 K/mcL (0.0-1.3); Monocytes % 53.4 %; Neutrophils # 0.3 K/mcL (1.6-8.9); Red Blood Count 2.65 M/mcL (4.19-5.50); Segmented Neutrophils % 11.6 %; White Blood Count 2.9 K/mcL (4.3-11.1)
[2020-05-24 02:12] LABS: Platelet Count 49 K/mcL (140-400)
[2020-05-24 02:18] LABS: BUN/Creatinine Ratio 17 (6-26); Blood Urea Nitrogen 18 mg/dL (8-23); Calcium 8.1 mg/dL (8.6-10.3); Carbon Dioxide 25 mEq/L (23-29); Chloride 99 mEq/L (98-107); Glucose 96 mg/dL (70-105); Osmolality,Calculated 272 (280-300); Potassium 3.8 mEq/L (3.5-5.1); Sodium 130 mEq/L (136-145); eGFR For African Americans > 60 (> 60); eGFR For Non-African Americans > 60 (> 60)
[2020-05-24 03:05] LABS: Platelet Estimate Decreased (Normal)
[2020-05-24] MEDS: Insulin LISPRO 300 UNITS/3 ML VIAL SQ SCH ×4 (05:32→20:50)
[2020-05-24] MEDS: Budesonide/Formoterol 160/4.5 1 PUFF INH IH SCH ×2 (08:10→21:41)
[2020-05-24] MEDS: Metoclopramide 10 MG/2 ML VIAL IVP SCH ×3 (09:05→18:19)
[2020-05-24] MEDS: *HR* OxyCODONE Immed Rel 15 MG TABLET PO PRN ×2 (09:07→18:28)
[2020-05-24] MEDS: predniSONE 10 MG TABLET PO SCH (09:07)
[2020-05-24] MEDS: Cholecalciferol (D-3) 1,000 UNIT (25MCG) TABLET PO SCH (09:07)
[2020-05-24] MEDS: Folic Acid 1 MG TABLET PO SCH (09:08)
[2020-05-24] MEDS: Morphine Sulfate ER (12 HR) 30 MG TABLET.ER PO SCH ×3 (09:08→20:43)
[2020-05-24] MEDS: PrednisoLONE Acetate 1% Opth 5 ML BOTTLE LEFT EYE SCH ×4 (09:12→20:44)
[2020-05-24] MEDS: Ofloxacin OPTH Drops 5 ML BOTTLE LEFT EYE SCH ×4 (09:13→20:44)
[2020-05-24] MEDS ORDERED: Morphine Sulfate 2 MG/ML SYRINGE IVP ONE (11:59)
[2020-05-25 03:10] LABS: Alpha 2 Globulin (PEP) 1.02 g/dL (0.48-1.05); Beta Globulin (PEP) 1.06 g/dL (0.48-1.10)
[2020-05-25] MEDS: Insulin LISPRO 300 UNITS/3 ML VIAL SQ SCH ×4 (04:36→21:05)
[2020-05-25 07:47] LABS: Hematocrit 23.3 % (37.5-50.1); Hemoglobin 7.5 g/dL (12.9-16.9); Immature Platelets 2.6 % (1.1-6.1); Mean Corpuscular HGB Conc 32.2 g/dL (31.6-35.5); Mean Corpuscular Hemoglobin 29.5 pg (28.0-33.3); Mean Corpuscular Volume 91.7 fL (83.0-100.0); Mean Platelet Volume 10.3 fL (9.4-12.4); Red Blood Count 2.54 M/mcL (4.19-5.50); Red Cell Distribution Width 18.5 % (11.5-14.5); White Blood Count 3.2 K/mcL (4.3-11.1)
[2020-05-25] MEDS: Metoclopramide 10 MG/2 ML VIAL IVP SCH ×3 (07:50→18:25)
[2020-05-25] MEDS: Cholecalciferol (D-3) 1,000 UNIT (25MCG) TABLET PO SCH (07:51)
[2020-05-25] MEDS: predniSONE 10 MG TABLET PO SCH (07:52)
[2020-05-25] MEDS: Morphine Sulfate ER (12 HR) 30 MG TABLET.ER PO SCH ×3 (07:52→21:02)
[2020-05-25 07:56] LABS: BUN/Creatinine Ratio 19 (6-26); Blood Urea Nitrogen 24 mg/dL (8-23); Calcium 8.4 mg/dL (8.6-10.3); Carbon Dioxide 25 mEq/L (23-29); Chloride 99 mEq/L (98-107); Glucose 108 mg/dL (70-105); Osmolality,Calculated 277 (280-300); Potassium 3.7 mEq/L (3.5-5.1); Sodium 131 mEq/L (136-145); eGFR For African Americans > 60 (> 60); eGFR For Non-African Americans 57 (> 60)
[2020-05-25] MEDS: *HR* OxyCODONE Immed Rel 15 MG TABLET PO PRN ×3 (08:01→22:28)
[2020-05-25] MEDS: PrednisoLONE Acetate 1% Opth 5 ML BOTTLE LEFT EYE SCH ×4 (08:05→21:05)
[2020-05-25] MEDS: Ofloxacin OPTH Drops 5 ML BOTTLE LEFT EYE SCH ×4 (08:05→21:05)
[2020-05-25 08:24] LABS: Platelet Count 46 K/mcL (140-400)
[2020-05-25] MEDS ORDERED: ALPRAZolam 0.5 MG TABLET PO SCH (09:00)
[2020-05-25 09:14] LABS: IFE Reflexed NOT DONE
[2020-05-25 09:16] LABS: ANA IgG by ELISA DETECTED (None Detected)
[2020-05-25 09:45] LABS: Adenovirus Not Detected (Not Detect); Bordetella Pertussis Not Detected (Not Detect); Chlamydophila pneumoniae Not Detected (Not Detect); Coronavirus 229E Not Detected (Not Detect); Coronavirus HKU1 Not Detected (Not Detect); Coronavirus NL63 Not Detected (Not Detect); Coronavirus OC43 Not Detected (Not Detect); Human Metapneumovirus Not Detected (Not Detect); Human Rhinovirus/Enterovirus Not Detected (Not Detect); Influenza A Subtype 2009 H1 Not Detected (Not Detect); Influenza B Not Detected (Not Detect); Mycoplasma pneumoniae Not Detected (Not Detect); Parainfluenza Virus 1 Not Detected (Not Detect); Parainfluenza Virus 2 Not Detected (Not Detect); Parainfluenza Virus 3 Not Detected (Not Detect); Parainfluenza Virus 4 Not Detected (Not Detect); Respiratory Syncytial Virus Not Detected (Not Detect); SARS-CoV-2 Not Detected (Not Detect)
[2020-05-25] MEDS: Budesonide/Formoterol 160/4.5 1 PUFF INH IH SCH ×2 (11:00→20:14)
[2020-05-25 11:21] LABS: Lymphocytes # 1.6 K/mcL (0.6-4.6); Monocytes # 1.4 K/mcL (0.0-1.3); Neutrophils # 0.2 K/mcL (1.6-8.9)
[2020-05-25 11:22] LABS: Platelet Estimate Marked Decrease (Normal); Reactive Lymphocytes Present (Not Present)
[2020-05-25 11:23] LABS: Anisocytosis 1+ (Not Present); Poikilocytosis 1+ (Not Present)
[2020-05-25] MEDS ORDERED: Morphine Sulfate 2 MG/ML SYRINGE IVP ONE (11:57)
[2020-05-25 12:15] LABS: Lambda Qnt Free Light Chains 196.26 mg/L (5.71-26.30)
[2020-05-25] MEDS ORDERED: 0.9 % Sodium Chloride 500 ML ONE (13:04)
[2020-05-25] MEDS ORDERED: *HR* Midazolam HCl 2 MG/2 ML VIAL IVP ONE (13:08)
[2020-05-25] MEDS ORDERED: *HR* FentaNYL (PF) 100 MCG/2 ML VIAL IVP ONE (13:08)
[2020-05-25 13:12] LABS: Kappa Qnt Free Light Chains 217.56 mg/L (3.30-19.40)
[2020-05-25] MEDS ORDERED: *HR* FentaNYL (PF) 100 MCG/2 ML VIAL ONE (13:21)
[2020-05-25] MEDS ORDERED: *HR* Midazolam HCl 2 MG/2 ML VIAL ONE (13:21)
[2020-05-25] MEDS: Folic Acid 1 MG TABLET PO SCH (18:15)
[2020-05-26] MEDS: Insulin LISPRO 300 UNITS/3 ML VIAL SQ SCH ×3 (03:47→16:25)
[2020-05-26] MEDS: *HR* OxyCODONE Immed Rel 15 MG TABLET PO PRN ×2 (06:37→12:27)
[2020-05-26] MEDS: Budesonide/Formoterol 160/4.5 1 PUFF INH IH SCH ×2 (07:59→20:07)
[2020-05-26] MEDS: predniSONE 10 MG TABLET PO SCH (08:48)
[2020-05-26] MEDS: Folic Acid 1 MG TABLET PO SCH (08:48)
[2020-05-26] MEDS: Cholecalciferol (D-3) 1,000 UNIT (25MCG) TABLET PO SCH (08:48)
[2020-05-26] MEDS: Morphine Sulfate ER (12 HR) 30 MG TABLET.ER PO SCH ×2 (08:49→14:44)
[2020-05-26] MEDS: PrednisoLONE Acetate 1% Opth 5 ML BOTTLE LEFT EYE SCH ×3 (08:49→16:26)
[2020-05-26] MEDS: Metoclopramide 10 MG/2 ML VIAL IVP SCH ×3 (08:49→16:26)
[2020-05-26] MEDS: Ofloxacin OPTH Drops 5 ML BOTTLE LEFT EYE SCH ×3 (08:50→16:26)
[2020-05-26 09:11] LABS: Hemoglobin 7.7 g/dL (12.9-16.9)
[2020-05-26 09:13] LABS: Eosinophils % 0.4 %; Hematocrit 24.9 % (37.5-50.1); Immature Granulocytes % 0.7 % (0-4); Immature Platelets 2.5 % (1.1-6.1); Lymphocytes # 1.5 K/mcL (0.6-4.6); Lymphocytes % 32.8 %; Mean Corpuscular HGB Conc 30.9 g/dL (31.6-35.5); Mean Corpuscular Hemoglobin 28.8 pg (28.0-33.3); Mean Corpuscular Volume 93.3 fL (83.0-100.0); Mean Platelet Volume 9.5 fL (9.4-12.4); Monocytes # 2.6 K/mcL (0.0-1.3); Monocytes % 57.7 %; Neutrophils # 0.4 K/mcL (1.6-8.9); Red Blood Count 2.67 M/mcL (4.19-5.50); Red Cell Distribution Width 18.3 % (11.5-14.5); Segmented Neutrophils % 8.4 %; White Blood Count 4.5 K/mcL (4.3-11.1)
[2020-05-26 09:16] LABS: BUN/Creatinine Ratio 21 (6-26); Blood Urea Nitrogen 24 mg/dL (8-23); Calcium 8.3 mg/dL (8.6-10.3); Carbon Dioxide 25 mEq/L (23-29); Chloride 96 mEq/L (98-107); Glucose 119 mg/dL (70-105); Osmolality,Calculated 273 (280-300); Potassium 3.8 mEq/L (3.5-5.1); Sodium 129 mEq/L (136-145); eGFR For African Americans > 60 (> 60); eGFR For Non-African Americans > 60 (> 60)
[2020-05-26 10:05] LABS: Platelet Count 51 K/mcL (140-400)
[2020-05-26 11:28] LABS: Platelet Estimate Decreased (Normal)
[2020-05-26 17:48] VITALS: BP 139/76
[2020-05-27 16:28] LABS: ANA HEp-2 IgG IFA DETECTED (<1:80); Anti Nuclear Ab Pattern SPECKLED
[2020-05-28 09:05] LABS: Cytoplasmic Pattern SPECKLED
== END 2020-05-26 21:49 | DRG 637 ==
LOC: EMEROOARM 18:26 → 3NENU 18:26 → SUATTDRO 19:48 → 3NENU 20:45 → SUATTDRO 05-19 19:16
PROVIDERS: ADMIT Internal Medicine; ATTEND Family Medicine